=== PATIENT | female | born 2000 | race Caucasian/White ===

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

== ENCOUNTER 2019-01-13 22:29 | Emergency (ER) | payer MEDICAID ==
[2019-01-13 22:46] LABS: MUDS CUTOFF CONCENTRATIONS CUTOFF CONC BELOW:
[2019-01-13 22:48] LABS: BILIRUBIN,URINE NEGATIVE (NEGATIVE); GLUCOSE, URINE (UA) NEGATIVE (NEGATIVE); KETONES,URINE (UA) NEGATIVE (NEGATIVE); LEUKOCYTE ESTERASE, URINE NEGATIVE (NEGATIVE); NITRITE,URINE NEGATIVE (NEGATIVE); OCCULT BLOOD,URINE NEGATIVE (NEGATIVE); PH,URINE 6.5 PH (5.0-7.5); PROTEIN,URINE NEGATIVE (NEGATIVE); UROBILINOGEN,URINE 0.2 (NORMAL) E.U./dL (NORMAL)
[2019-01-13 22:50] LABS: CLARITY,URINE CLEAR (CLEAR); HCG UR QUAL NEGATIVE
[2019-01-13] MEDS ORDERED: LORazepam 0.5 MG TABLET PO STA (23:02)
[2019-01-13 23:04] LABS: AMPHETAMINE SCREEN,URINE NEGATIVE (NEGATIVE); BENZODIAZEPINES SCREEN, URINE NEGATIVE (NEGATIVE); COCAINE SCREEN URINE NEGATIVE (NEGATIVE); METHADONE SCREEN, URINE NEGATIVE (NEGATIVE); METHAMPHETAMINES SCREEN, URINE NEGATIVE (NEGATIVE); OPIATE SCREEN, URINE NEGATIVE (NEGATIVE); OXYCODONE SCREEN, URINE NEGATIVE (NEGATIVE); PROPOXYPHENE SCREEN, URINE NEGATIVE (NEGATIVE); TRICYCLIC ANTIDEPRESSANT,URINE NEGATIVE (NEGATIVE)
--- NOTE | 2019-01-13 23:05 | ED Physician Documentation ---
PD HPI MHE - Stated complaint Stated Complaint: MHE/SI - Chief complaint Chief Complaint: MHE - History obtained from History obtained from: Patient, Family - History of Present Illness Primary symptom: Suicidal ideation, Depression Timing - onset: How many weeks ago (chronic, worse for the past 2 days.) Pain level max: 0 Pain level now: 0 Contributing factors: Family, Work, Other (friends) Similar symptoms before: Diagnosis (depression, SI) Recently seen: Not recently seen (stopped seeing her counselor 4 months ago and stopped meds a few weeks ago.) - Additional information Additional information: states she would crash her car to kill herself. Review of Systems Ten Systems: 10 systems reviewed and negative Constitutional: denies: Fever, Chills Ears: denies: Ear pain Nose: denies: Rhinorrhea / runny nose, Congestion GI: denies: Vomiting : denies: Now EGA Skin: denies: Rash Musculoskeletal: denies: Neck pain, Back pain Neurologic: denies: Headache Psychiatric: reports: Depressed, Suicidal, Insomnia PD PAST MEDICAL HISTORY - Past Medical History Cardiovascular: None Respiratory: None Endocrine/Autoimmune: None Psych: Depression, Obsessive compulsive disorder Musculoskeletal: None - Past Surgical History Past Surgical History: Yes HEENT: Myringotomy (tubes), Tonsil/Adenoidectomy - Present Medications Home Medications: Ambulatory Orders Medication Instructions Recorded Confirmed No Known Home Medications 01/13/19 01/13/19 - Allergies Allergies/Adverse Reactions: Allergies Allergy/AdvReac Type Severity Reaction Status Date / Time morphine Allergy Rash Verified 01/13/19 22:36 - Social History Does the pt smoke?: No Smoking Status: Never smoker Does the pt drink ETOH?: No Does the pt have substance abuse?: No - Immunizations Immunizations are current?: Yes - POLST Patient has POLST: No PD ED PE NORMAL - Vitals Vital signs reviewed: Yes - General General: Alert and oriented X 3, Well developed/nourished, Other (tearful and crying) - HEENT HEENT: PERRL, Moist mucous membranes - Neck Neck: Supple, no meningeal sign - Cardiac Cardiac: RRR, Strong equal pulses - Respiratory Respiratory: No respiratory distress, Clear bilaterally - Abdomen Abdomen: Soft, Non tender, Non distended - Back Back: No CVA TTP - Derm Derm: Warm and dry, No rash - Extremities Extremities: No edema - Neuro Neuro: Alert and oriented X 3 - Psych Psych: Other (crying, but cooperative) Results - Vitals Vitals: Vital Signs - 24 hr 01/13/19 01/13/19 22:31 22:36 Temperature 37.2 C 37.2 C Heart Rate 71 71 Respiratory 26 H 26 H Rate Blood Pressure 143/96 H 143/96 H O2 Saturation 100 100 Oxygen O2 Source Room air - Labs Labs: Laboratory Tests 01/13/19 01/13/19 01/13/19 22:41 22:41 23:55 WBC 6.8 RBC 4.35 Hgb 12.5 Hct 36.4 L MCV 83.6 MCH 28.6 MCHC 34.2 RDW 13.8 Plt Count 270 MPV 7.8 L Neut # (Auto) 3.4 Lymph # (Auto) 2.7 [place] # (Auto) 0.5 Eos # (Auto) 0.1 Baso # (Auto) 0.1 Absolute Nucleated RBC 0.00 Nucleated RBC % 0.0 Sodium Potassium Chloride Carbon Dioxide Anion Gap BUN Creatinine Estimated GFR (MDRD) Glucose Calcium Total Bilirubin AST ALT Alkaline Phosphatase Total Protein Albumin Globulin Albumin/Globulin Ratio Lipase TSH Urine Color YELLOW Urine Clarity CLEAR Urine pH 6.5 Ur Specific [place] 1.015 Urine Protein NEGATIVE Urine Glucose (UA) NEGATIVE Urine Ketones NEGATIVE Urine Occult Blood NEGATIVE Urine Nitrite NEGATIVE Urine Bilirubin NEGATIVE Urine Urobilinogen 0.2 (NORMAL) Ur Leukocyte Esterase NEGATIVE Ur Microscopic Review NOT INDICATED Urine Culture Comments NOT INDICATED Urine HCG, Qual NEGATIVE Salicylates Urine Opiates Screen NEGATIVE Ur Oxycodone Screen NEGATIVE Urine Methadone Screen NEGATIVE Ur Propoxyphene Screen NEGATIVE Acetaminophen Ur Barbiturates Screen NEGATIVE Ur Tricyclics Screen NEGATIVE Ur Phencyclidine Scrn NEGATIVE Ur Amphetamine Screen NEGATIVE U Methamphetamines Scrn NEGATIVE U Benzodiazepines Scrn NEGATIVE Urine Cocaine Screen NEGATIVE U Cannabinoids Screen POSITIVE H Ethyl Alcohol 01/13/19 01/13/19 23:55 23:55 WBC RBC Hgb Hct MCV MCH MCHC RDW Plt Count MPV Neut # (Auto) Lymph # (Auto) [place] # (Auto) Eos # (Auto) Baso # (Auto) Absolute Nucleated RBC Nucleated RBC % Sodium 142 Potassium 3.7 Chloride 108 Carbon Dioxide 26 Anion Gap 8.0 BUN 12 Creatinine 0.6 Estimated GFR (MDRD) 129 Glucose 96 Calcium 9.2 Total Bilirubin 0.5 AST 17 ALT 11 Alkaline Phosphatase 33 L Total Protein 7.5 Albumin 4.8 Globulin 2.7 Albumin/Globulin Ratio 1.8 Lipase 34 TSH 1.56 Urine Color Urine Clarity Urine pH Ur Specific [place] Urine Protein Urine Glucose (UA) Urine Ketones Urine Occult Blood Urine Nitrite Urine Bilirubin Urine Urobilinogen Ur Leukocyte Esterase Ur Microscopic Review Urine Culture Comments Urine HCG, Qual Salicylates < 6.0 Urine Opiates Screen Ur Oxycodone Screen Urine Methadone Screen Ur Propoxyphene Screen Acetaminophen < 10 L Ur Barbiturates Screen Ur Tricyclics Screen Ur Phencyclidine Scrn Ur Amphetamine Screen U Methamphetamines Scrn U Benzodiazepines Scrn Urine Cocaine Screen U Cannabinoids Screen Ethyl Alcohol < 5.0 PD MEDICAL DECISION MAKING - ED course Complexity details: reviewed results, re-evaluated patient, considered differential, d/w patient, d/w family ED course: Patient is medically clear for psychiatric care. Tele-psychiatry was consulted and awaiting consult at change of shift. Social work will be consulted for placement. Patient is voluntary at this point. Patient signed out to [facility] emergency department physician This document was made in part using voice recognition software. While efforts are made to proofread this document, sound alike and grammatical errors may occur. Departure - Departure Clinical Impression: Suicidal ideation Depression Qualifiers: Depression Type: unspecified Qualified Code(s): F32.9 - Major depressive disorder, single episode, unspecified Condition: Good
[2019-01-14 00:04] LABS: BASOPHILS # (AUTO) 0.1 10^3/uL (0.0-0.1); BASOPHILS % (AUTO) 1.1 %; EOSINOPHILS # (AUTO) 0.1 10^3/uL (0.0-0.7); EOSINOPHILS % (AUTO) 1.3 %; HGB - HEMOGLOBIN 12.5 g/dL (12.0-16.0); LYMPHOCYTES # (AUTO) 2.7 10^3/uL (1.5-3.5); LYMPHOCYTES % (AUTO) 40.1 %; MEAN CORPUSCULAR HEMOGLOBIN 28.6 pg (27.0-31.0); MEAN CORPUSCULAR HGB CONC 34.2 g/dL (32.0-36.0); MEAN CORPUSCULAR VOLUME 83.6 fL (81.0-99.0); MEAN PLATELET VOLUME 7.8 fL (7.9-10.8); MONOCYTES # (AUTO) 0.5 10^3/uL (0.0-1.0); NEUTROPHILS # (AUTO) 3.4 10^3/uL (1.5-6.6); NEUTROPHILS % (AUTO) 49.5 %; PLT - PLATELET COUNT 270 10^3/uL (130-450); RED BLOOD COUNT 4.35 10^6/uL (4.20-5.40); RED CELL DISTRIBUTION WIDTH 13.8 % (12.0-15.0); WHITE BLOOD COUNT 6.8 x10^3/uL (4.8-10.8)
[2019-01-14 00:17] LABS: ACETAMINOPHEN < 10 ug/mL (10-30); ALBUMIN 4.8 g/dL (3.2-5.5); ALBUMIN/GLOBULIN RATIO 1.8 (1.0-2.2); ALKALINE PHOSPHATASE 33 IU/L (42-121); ALT ALANINE AMINOTRANSFERASE 11 IU/L (10-60); AST ASPARTATE AMINOTRANSFERASE 17 IU/L (10-42); BILIRUBIN,TOTAL 0.5 mg/dL (0.2-1.0); BUN - BLOOD UREA NITROGEN 12 mg/dL (6-20); CALCIUM 9.2 mg/dL (8.5-10.3); CARBON DIOXIDE - CO2 26 mmol/L (21-32); CHLORIDE 108 mmol/L (101-111); CREATININE 0.6 mg/dL (0.4-1.0); GFR - MDRD 129 (>89); GLUCOSE 96 mg/dL (70-100); LIPASE 34 U/L (22-51); SALICYLATE < 6.0 mg/dL; SODIUM 142 mmol/L (135-145); TOTAL PROTEIN 7.5 g/dL (6.7-8.2)
[2019-01-14] MEDS ORDERED: ACETAMINOPHEN 325 MG TABLET PO STA (01:17)
[2019-01-14] MEDS ORDERED: LORazepam 0.5 MG TABLET PO STA (06:54)
--- NOTE | 2019-01-14 06:59 | TELEPSYCH PHYS NOTE ---
Telepsych Note - CHIEF COMPLAINT/HX OF PRESENT ILLNESS Cheif Complaint and History of Present Illness: Name: Svetlana Ceron : 89. 18F Date: 01/14/19 Time: 9:35am Location of patient: [facility] ED Location of doctor: [place] This evaluation was conducted via telepsychiatry with the assistance of onsite staff Chief Complaint: Depression / SI History of Present Illness: Pt seen via televideo with the help of onsite staff. Pt is a 18 yo female with a hx of depression. Pt presented to the ED due to a several week period of worsening depressive sxs. Cites sxs inclusive of pervasive depressed mood, poor sleep, decreased appetite, isolation, tearfulness, negative self-talk, feeling helpless, hopeless and over the past 2 week notes increasing thoughts of suicide. Reports she does not want to be here any longer. Reports a potential plan to kill herself; via crashing her car or overdosing on pills. States while driving she states she comes close a lot. However she stops herself because she is worried that she will not be successful and end up injured and in a worse situation. PT has no prior hx of attempts, however prior hx of ideation and self injury. She stopped therapy approximately 4 months ago and her medications 8 months ago. States on 3 year long trials of Zoloft, Prozac and Effexor were all unsuccessful. States therapy was unhelpful. On ROS, pt denies AVHs, delusions nor HI. Reports SI, noted a potential plan to crash her car. Pt presents with si/sxs of worsening depression in the context of multiple stressors and poor coping. Pt presents as a danger to herself requiring acute inpt psychiatric admission for safety, stabilization and treatment. Pt is voluntary for inpt treatment. Collateral: Spoke to the pts mother, who was present during the evaluation. [phone]. She expressed safety concerns. She notes pt has been worsening over the past few weeks. States she has been lashing out to push her family away. Has been isolating which is not her. States she expressed a desire to last night which is why she brought her to the hospital. SI/ Self harm: reports prior ideation and plan. Prior hx of self injurious behaivors. No reported attempts. HI/Violence: none reported Trauma history: unknown Access to weapons: none reported Legal: none reported Psychiatric History/Treatment History: prior outpt. No previous inpt admissions. Drug/Alcohol History: none reported Medical History: none reported Medications & Freq: none currently. Previously on Zoloft, Prozac and Effexor all she reports for a year trial and all ineffective. Allergies: morphine Sleep: decreased. Family Psych History/History of suicide: mother and father with depression and anxiety. Both treated with Venlafaxine with good effect. 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 Denies HI. + SI with plan (s) crash her car or take pills. Perception: Denies AVHs Sensorium, memory, and orientation: AxOx3. Intellectual functioning: average Insight and judgment: fair . - SI/HI/SELF HARM SI/HI/SELF HARM (CURRENT OR HISTORY OF):: SI - VIOLENCE/LEGAL/COLLATERAL Violence - Legal - Collateral: none reported - PSYCHIATRIC HX/TREATMENT HX Psychiatric: Depression, Obsessive compulsive disorder Psychiatric/Treatment Hx Other: Hx of outpt treatment. Non compliant for the past several months. - MEDICAL HX Does the pt have a hx of MRSA?: No Cardiovascular: None Respiratory: None Endocrine/Autoimmune: None Musculoskeletal: None Blood Disorders: None - HOME MEDICATIONS Home Meds (as last confirmed): Patient History Medication Instructions Recorded Confirmed No Known Home Medications 01/13/19 01/13/19 - ALLERGIES Allergies (as last confirmed): Allergies Allergy/AdvReac Type Severity Reaction Status Date / Time morphine Allergy Rash Verified 01/13/19 22:36 - FAMILY PSYCH/SUICIDE/SOCIAL HX-MENTAL Family - Suicide - Social Hx and Mental Status Exam: Mother and Father with depression and anxiety. No family hx of suicidality. - TREATMENT/PHARMACOLOGICAL RECOMMENDATION Treatment - Pharmacological - Therapy Recommendations: Diagnosis: MDD, severe, recurrent without psychotic features. Impression/Risk Assessment: Pt is a 18 yo female with hx of depression presenting with a several week period of worsening depressive sxs inclusive of suicidal ideation and a noted potential plan. Pt stopped her outpt therapy and medications months previously. Pts mother expressed safety concerns. She pres ents as a danger to herself requiring acute inpt psychiatric admission for safety, stabilization and treatment. Treatment Recommendations: Pt requires acute inpt psychiatric admission For safety, stabilization and treatment. Pt is voluntary for inpt treatment. Should the pt no longer agree to voluntary placement, she cannot leave and will require involuntary placement - TIME SPENT & PROVIDER LOCATION Telepsych consultation conducted via videoconferencing: Yes List names and roles of persons who participated in consult: melissa urena (mother)stella Telepsych Provider Location: [place] Time Telepsych consult began: 09:35 Time Telepsych consult completed: 09:50
--- NOTE | 2019-01-14 09:17 | ED Physician Documentation ---
PD HPI MHE - Stated complaint Stated Complaint: MHE/SI - Chief complaint Chief Complaint: MHE - History obtained from History obtained from: Patient, Family - History of Present Illness Primary symptom: Suicidal ideation, Depression PD PAST MEDICAL HISTORY - Past Medical History Cardiovascular: None Respiratory: None Endocrine/Autoimmune: None Psych: Depression, Obsessive compulsive disorder Musculoskeletal: None - Past Surgical History Past Surgical History: Yes HEENT: Myringotomy (tubes), Tonsil/Adenoidectomy - Present Medications Home Medications: Ambulatory Orders Medication Instructions Recorded Confirmed No Known Home Medications 01/13/19 01/13/19 - Allergies Allergies/Adverse Reactions: Allergies Allergy/AdvReac Type Severity Reaction Status Date / Time morphine Allergy Rash Verified 01/13/19 22:36 - Social History Does the pt smoke?: No Smoking Status: Never smoker Does the pt drink ETOH?: No Does the pt have substance abuse?: No - Immunizations Immunizations are current?: Yes - POLST Patient has POLST: No Results - Vitals Vitals: Vital Signs - 24 hr 01/13/19 01/13/19 01/14/19 22:31 22:36 07:07 Temperature 37.2 C 37.2 C Heart Rate 71 71 85 Respiratory 26 H 26 H 16 Rate Blood Pressure 143/96 H 143/96 H 97/59 L O2 Saturation 100 100 99 Oxygen O2 Source Room air - Labs Labs: Laboratory Tests 01/13/19 01/13/19 01/13/19 22:41 22:41 23:55 WBC 6.8 RBC 4.35 Hgb 12.5 Hct 36.4 L MCV 83.6 MCH 28.6 MCHC 34.2 RDW 13.8 Plt Count 270 MPV 7.8 L Neut # (Auto) 3.4 Lymph # (Auto) 2.7 [place] # (Auto) 0.5 Eos # (Auto) 0.1 Baso # (Auto) 0.1 Absolute Nucleated RBC 0.00 Nucleated RBC % 0.0 Sodium Potassium Chloride Carbon Dioxide Anion Gap BUN Creatinine Estimated GFR (MDRD) Glucose Calcium Total Bilirubin AST ALT Alkaline Phosphatase Total Protein Albumin Globulin Albumin/Globulin Ratio Lipase TSH Urine Color YELLOW Urine Clarity CLEAR Urine pH 6.5 Ur Specific [place] 1.015 Urine Protein NEGATIVE Urine Glucose (UA) NEGATIVE Urine Ketones NEGATIVE Urine Occult Blood NEGATIVE Urine Nitrite NEGATIVE Urine Bilirubin NEGATIVE Urine Urobilinogen 0.2 (NORMAL) Ur Leukocyte Esterase NEGATIVE Ur Microscopic Review NOT INDICATED Urine Culture Comments NOT INDICATED Urine HCG, Qual NEGATIVE Salicylates Urine Opiates Screen NEGATIVE Ur Oxycodone Screen NEGATIVE Urine Methadone Screen NEGATIVE Ur Propoxyphene Screen NEGATIVE Acetaminophen Ur Barbiturates Screen NEGATIVE Ur Tricyclics Screen NEGATIVE Ur Phencyclidine Scrn NEGATIVE Ur Amphetamine Screen NEGATIVE U Methamphetamines Scrn NEGATIVE U Benzodiazepines Scrn NEGATIVE Urine Cocaine Screen NEGATIVE U Cannabinoids Screen POSITIVE H Ethyl Alcohol 01/13/19 01/13/19 23:55 23:55 WBC RBC Hgb Hct MCV MCH MCHC RDW Plt Count MPV Neut # (Auto) Lymph # (Auto) [place] # (Auto) Eos # (Auto) Baso # (Auto) Absolute Nucleated RBC Nucleated RBC % Sodium 142 Potassium 3.7 Chloride 108 Carbon Dioxide 26 Anion Gap 8.0 BUN 12 Creatinine 0.6 Estimated GFR (MDRD) 129 Glucose 96 Calcium 9.2 Total Bilirubin 0.5 AST 17 ALT 11 Alkaline Phosphatase 33 L Total Protein 7.5 Albumin 4.8 Globulin 2.7 Albumin/Globulin Ratio 1.8 Lipase 34 TSH 1.56 Urine Color Urine Clarity Urine pH Ur Specific [place] Urine Protein Urine Glucose (UA) Urine Ketones Urine Occult Blood Urine Nitrite Urine Bilirubin Urine Urobilinogen Ur Leukocyte Esterase Ur Microscopic Review Urine Culture Comments Urine HCG, Qual Salicylates < 6.0 Urine Opiates Screen Ur Oxycodone Screen Urine Methadone Screen Ur Propoxyphene Screen Acetaminophen < 10 L Ur Barbiturates Screen Ur Tricyclics Screen Ur Phencyclidine Scrn Ur Amphetamine Screen U Methamphetamines Scrn U Benzodiazepines Scrn Urine Cocaine Screen U Cannabinoids Screen Ethyl Alcohol < 5.0 PD MEDICAL DECISION MAKING - ED course Complexity details: reviewed old records, reviewed results, considered differential, d/w patient, d/w family ED course: 18-year-old female with a history of depression has been off of her medications is depressed and has suicidal. ~Psych is recommended inpatient psychiatric treatment and the medical psychotherapist has been able to secure a bed at [facility]. Departure - Departure Disposition: 65 Psych Hosp/Unit DC/Xfer Clinical Impression: Suicidal ideation Depression Qualifiers: Depression Type: unspecified Qualified Code(s): F32.9 - Major depressive disorder, single episode, unspecified Condition: Good
[2019-01-14 11:15] VITALS: BP 110/65
== END 2019-01-14 11:33 ==
LOC: ED 22:29
DX: R45.851 Suicidal ideations (principal); F32.9 Major depressive disorder, single episode, unspecified; Z91.128 Patient's intentional underdosing of medication regimen for other reason; Z75.1 Person awaiting admission to adequate facility elsewhere
CPT/HCPCS: 36415; 80053; 80306; 80307; 80320; 80329; 81003; 81025; 83690; 84443; 85025; 99284; 99285; A9270; Q3014; 81001; 87086; 99283

== ENCOUNTER 2019-02-04 08:00 | Outpatient (CLI) | payer MEDICAID ==
[2019-02-04 14:08] LABS: BASOPHILS # (AUTO) 0.1 10^3/uL (0.0-0.1); EOSINOPHILS # (AUTO) 0.1 10^3/uL (0.0-0.7); EOSINOPHILS % (AUTO) 1.3 %; HGB - HEMOGLOBIN 12.2 g/dL (12.0-16.0); LYMPHOCYTES # (AUTO) 1.7 10^3/uL (1.5-3.5); LYMPHOCYTES % (AUTO) 32.2 %; MEAN CORPUSCULAR HGB CONC 34.2 g/dL (32.0-36.0); MEAN CORPUSCULAR VOLUME 84.7 fL (81.0-99.0); MEAN PLATELET VOLUME 8.8 fL (7.9-10.8); MONOCYTES # (AUTO) 0.4 10^3/uL (0.0-1.0); MONOCYTES % (AUTO) 6.6 %; NEUTROPHILS # (AUTO) 3.2 10^3/uL (1.5-6.6); NEUTROPHILS % (AUTO) 58.9 %; PLT - PLATELET COUNT 203 10^3/uL (130-450); RED BLOOD COUNT 4.19 10^6/uL (4.20-5.40); WHITE BLOOD COUNT 5.4 x10^3/uL (4.8-10.8)
[2019-02-04 14:27] LABS: HCG,QUALITATIVE BLOOD NEGATIVE
[2019-02-04 14:41] LABS: ALBUMIN 4.4 g/dL (3.2-5.5); ALBUMIN/GLOBULIN RATIO 1.8 (1.0-2.2); ALKALINE PHOSPHATASE 24 IU/L (42-121); ALT ALANINE AMINOTRANSFERASE 10 IU/L (10-60); AST ASPARTATE AMINOTRANSFERASE 14 IU/L (10-42); BILIRUBIN,TOTAL 0.9 mg/dL (0.2-1.0); BUN - BLOOD UREA NITROGEN 10 mg/dL (6-20); CARBON DIOXIDE - CO2 23 mmol/L (21-32); CHLORIDE 109 mmol/L (101-111); CHOL/HDL RATIO 2.2 (<4.4); CHOLESTEROL 108 mg/dL; CREATININE 0.6 mg/dL (0.4-1.0); GFR - MDRD 129 (>89); GLUCOSE 93 mg/dL (70-100); HDL CHOLESTEROL 49 mg/dL; SODIUM 138 mmol/L (135-145); TOTAL PROTEIN 6.9 g/dL (6.7-8.2)
== END 2019-02-04 23:59 | disposition home or self-care (01) ==
LOC: LAB.N 08:00
PROVIDERS: ATTEND Registered Nurse
DX: F31.9 Bipolar disorder, unspecified (principal); Z79.899 Other long term (current) drug therapy; Z30.011 Encounter for initial prescription of contraceptive pills
CPT/HCPCS: 36415; 80053; 80061; 80178; 83721; 84443; 84703; 85025

== ENCOUNTER 2019-03-01 06:49 | Emergency (ER) | payer MEDICAID ==
[2019-03-01 06:55] VITALS: BP 113/63
--- NOTE | 2019-03-01 07:10 | ED Physician Documentation ---
PD HPI OPHTHO - Stated complaint Stated Complaint: EYE REDNESS - Chief complaint Chief Complaint: Heent - History obtained from History obtained from: Patient - History of Present Illness Timing - onset: Today Timing - duration: Hours Timing - details: Abrupt onset, Still present in ED Severity Comments: mild Location: Right Quality / character: Itching, Other (redness, discharge) Associated symptoms: Redness, Discharge Contributing factors: Exposed to conjunctivitis (a week or 2 ago) Similar symptoms before: Has not had sx before Recently seen: Not recently seen - Treatment prior to arrival Treatment prior to arrival: visine. - Additional information Additional information: Pt does not wear contacts or glasses Review of Systems Ten Systems: 10 systems reviewed and negative Constitutional: denies: Fever, Chills Eyes: reports: Discharge, Irritation. denies: Loss of vision, Decreased vision, Photophobia Nose: denies: Rhinorrhea / runny nose, Congestion, Sinus pressure / pain Throat: denies: Sore throat Respiratory: denies: Cough GI: denies: Nausea, Vomiting Skin: reports: Reviewed and negative Neurologic: denies: Headache PD PAST MEDICAL HISTORY - Past Medical History Cardiovascular: None Respiratory: None Endocrine/Autoimmune: None Psych: Depression, Obsessive compulsive disorder Musculoskeletal: None - Past Surgical History Past Surgical History: Yes HEENT: Myringotomy (tubes), Tonsil/Adenoidectomy - Present Medications Home Medications: Ambulatory Orders Medication Instructions Recorded Confirmed Erythromycin Base [Erythromycin 1 applic OP Q4HR #1 oint...g. 03/01/19 Ophthalmic Ointment] Lurasidone HCl [Latuda] 20 mg PO DAILY 03/01/19 03/01/19 - Allergies Allergies/Adverse Reactions: Allergies Allergy/AdvReac Type Severity Reaction Status Date / Time morphine Allergy Rash Verified 03/01/19 06:55 - Social History Does the pt smoke?: No Smoking Status: Never smoker Does the pt drink ETOH?: No Does the pt have substance abuse?: No - Immunizations Immunizations are current?: Yes - POLST Patient has POLST: No PD ED PE NORMAL - Vitals Vital signs reviewed: Yes - General General: Alert and oriented X 3 - HEENT HEENT: Atraumatic, PERRL, EOMI, Moist mucous membranes, Pharynx benign - Neck Neck: Supple, no meningeal sign - Cardiac Cardiac: RRR - Respiratory Respiratory: No respiratory distress - Abdomen Abdomen: Non distended - Female Female : Deferred - Rectal Rectal: Deferred - Derm Derm: Normal color, Warm and dry - Neuro Neuro: Alert and oriented X 3 Eye Opening: Spontaneous Motor: Obeys Commands Verbal: Oriented GCS Score: 15 - Psych Psych: Normal mood, Normal affect PD ED PE EXPANDED - Eyes Eyes: Visual acuity - see nn, Right eye, Injected conj/sclera. No: Eyelid swelling, Eyelid erythema, No eyelid FB (everted), Exudate, Scleral icterus Results - Vitals Vitals: Vital Signs - 24 hr 03/01/19 06:52 Temperature 36.8 C Heart Rate 57 L Respiratory 16 Rate Blood Pressure 113/63 O2 Saturation 100 Oxygen O2 Source Room air PD MEDICAL DECISION MAKING - ED course Complexity details: considered differential, d/w patient ED course: ddx - episcleritis, bacterial conjunctivitis, allergic conjunctivitis, viral conjunctivitis, corneal abrasion. 18 y/o F with no hx of eye trauma with mild R eye redness and discharge this morning. Does not wear contacts or glasses. 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 Denies hx of trauma. No allergic symptoms except for eye itching. Exam and hx Clinically c/w conjunctivitis. Will treat empirically with antibiotics. Departure - Departure Disposition: 01 Home, Self Care Clinical Impression: Conjunctivitis Qualifiers: Conjunctivitis type: acute Acute conjunctivitis type: unspecified Laterality: right Qualified Code(s): H10.31 - Unspecified acute conjunctivitis, right eye Condition: Stable Record reviewed to determine appropriate education?: Yes Instructions: Conjunctivitis Follow-Up: Araceli Swan ARNP [Primary Care Provider] - As Needed Prescriptions: Erythromycin Base [Erythromycin Ophthalmic Ointment] 1 applic OP Q4HR #1 oint...g. Comments: Use the antibiotic ointment for 7 days. Follow up with your doctor if symptoms persist. The antibiotic ointment can cause your vision to be initially slightly blurred. Wash your hands and avoid contact with the affected eye until symptoms resolve. You may return to work when symptoms resolve. Return to the ED if pain is severe or you develop decreased vision or loss of vision. Forms: Activity restrictions
== END 2019-03-01 07:32 | disposition home or self-care (01) ==
LOC: ED 06:49
DX: H10.31 Unspecified acute conjunctivitis, right eye (principal)
CPT/HCPCS: 99282; 99284

== ENCOUNTER 2019-04-12 08:00 | Outpatient (CLI) | payer MEDICAID ==
[2019-04-12 13:38] LABS: LITHIUM < 0.05 mmol/L
== END 2019-04-12 23:59 | disposition home or self-care (01) ==
LOC: LAB.N 08:00
PROVIDERS: ATTEND Registered Nurse
DX: Z79.899 Other long term (current) drug therapy (principal)
CPT/HCPCS: 36415; 80178

== ENCOUNTER 2019-08-21 17:20 | Emergency (ER) | payer MEDICAID ==
[2019-08-21 17:31] VITALS: BP 120/82
--- NOTE | 2019-08-21 17:34 | ED Physician Documentation ---
PD HPI PED ILLNESS - Stated complaint Stated Complaint: SORE THROAT - Chief complaint Chief Complaint: Heent - History obtained from History obtained from: Patient (3 days of sore throat with nasal drainage and cough. Some subjective fevers, none measured.) Review of Systems Constitutional: reports: Chills, Fatigue. denies: Myalgias Nose: reports: Rhinorrhea / runny nose, Congestion Throat: reports: Sore throat Respiratory: reports: Cough GI: denies: Vomiting, Diarrhea PD PAST MEDICAL HISTORY - Past Medical History Cardiovascular: None Respiratory: None Endocrine/Autoimmune: None Psych: Depression, Obsessive compulsive disorder Musculoskeletal: None - Past Surgical History Past Surgical History: Yes HEENT: Myringotomy (tubes), Tonsil/Adenoidectomy - Present Medications Home Medications: Ambulatory Orders Medication Instructions Recorded Confirmed Erythromycin Base [Erythromycin 1 applic OP Q4HR #1 oint...g. 03/01/19 Ophthalmic Ointment] Lurasidone HCl [Latuda] 20 mg PO DAILY 03/01/19 03/01/19 - Allergies Allergies/Adverse Reactions: Allergies Allergy/AdvReac Type Severity Reaction Status Date / Time morphine Allergy Rash Verified 08/21/19 17:28 - Social History Does the pt smoke?: No Smoking Status: Never smoker Does the pt drink ETOH?: No Does the pt have substance abuse?: No - Immunizations Immunizations are current?: Yes - POLST Patient has POLST: No PD ED PE NORMAL - Vitals Vital signs reviewed: Yes - General General: Alert and oriented X 3, No acute distress - HEENT HEENT: PERRL, Ears normal, Pharynx benign (Visualized portions of the oropharynx are fairly normal, no tonsils) - Neck Neck: Supple, no meningeal sign, No bony TTP, Other (Mild anterior cervical adenopathy, supple neck) - Derm Derm: Normal color, Warm and dry - Neuro Neuro: Alert and oriented X 3, Normal speech Results - Vitals Vitals: Vital Signs - 24 hr 08/21/19 17:28 Temperature 37.1 C Heart Rate 83 Respiratory 15 Rate Blood Pressure 120/82 H O2 Saturation 99 Oxygen O2 Source Room air - Labs Labs: Laboratory Tests 08/21/19 17:31 Group A Strep Rapid Negative Departure - Departure Disposition: 01 Home, Self Care Clinical Impression: Viral pharyngitis Condition: Good Record reviewed to determine appropriate education?: Yes Instructions: ED Pharyngitis Viral Comments: Ibuprofen as needed for pain, you can also try decongestant such as Sudafed. Return for new or worsening symptoms. Follow-up with your doctor in a week if not better.
[2019-08-21 17:47] LABS: RAPID STREP SCREEN Negative (Negative)
== END 2019-08-21 18:11 | disposition home or self-care (01) ==
LOC: ED 17:20
DX: J02.8 Acute pharyngitis due to other specified organisms (principal)
CPT/HCPCS: 87070; 87430; 99282; 99283

== ENCOUNTER 2020-04-28 20:29 | Emergency (ER) | payer MEDICAID ==
[2020-04-28 20:37] VITALS: BP 144/77
--- NOTE | 2020-04-28 20:49 | ED Physician Documentation ---
PD HPI UPPER EXT INJURY - Stated complaint Stated Complaint: FINGER LAC - Chief complaint Chief Complaint: Laceration - History obtained from History obtained from: Patient - History of Present Illness Location: Left, Finger (5th) Where injury occurred: Home Timing - onset: How many minutes ago (20) Timing - duration: Minutes (20) Timing - details: Abrupt onset Pain level max: 3 Pain level now: 2 Improved by: Rest Worsened by: Moving, Palpating Associated symptoms: No: Weakness, Numbness, Tingling, Swelling Recently seen: Not recently seen - Additonal information Additional information: pt is right handed. Td UTD. Review of Systems : denies: Now EGA PD PAST MEDICAL HISTORY - Past Medical History Past Medical History: Yes Cardiovascular: None Respiratory: None Endocrine/Autoimmune: None Psych: Depression, Obsessive compulsive disorder Musculoskeletal: None - Past Surgical History Past Surgical History: Yes HEENT: Myringotomy (tubes), Tonsil/Adenoidectomy - Present Medications Home Medications: Ambulatory Orders Medication Instructions Recorded Confirmed Erythromycin Base [Erythromycin 1 applic OP Q4HR #1 oint...g. 03/01/19 Ophthalmic Ointment] Lurasidone HCl [Latuda] 20 mg PO DAILY 03/01/19 03/01/19 - Allergies Allergies/Adverse Reactions: Allergies Allergy/AdvReac Type Severity Reaction Status Date / Time morphine Allergy Rash Verified 04/28/20 20:37 - Social History Does the pt smoke?: No Smoking Status: Never smoker Does the pt drink ETOH?: No Does the pt have substance abuse?: No - Immunizations Immunizations are current?: Yes - POLST Patient has POLST: No PD ED PE NORMAL - Vitals Vital signs reviewed: Yes - General General: Alert and oriented X 3, No acute distress - Extremities Extremities: Other (1 cm laceration to the distal tip of the left fifth digit. No bleeding. Subcutaneous. Neurovascular intact) - Neuro Neuro: Alert and oriented X 3 - Psych Psych: Normal mood, Normal affect Results - Vitals Vitals: Vital Signs - 24 hr 04/28/20 20:30 Temperature 36.8 C Heart Rate 71 Respiratory 16 Rate Blood Pressure 144/77 H O2 Saturation 100 Oxygen O2 Source Room air Procedures - Laceration (location) L 5th digit Length in cm: 1 Wound type: Into subcut fat, Clean Neurovascular status: Sensory intact, Motor intact, Vascular intact Tendon involvement: Tendon intact Wound Preparation: Irrigated copiously NS Skin layer closure: Dermabond Other: Patient tolerated well, No complications, Neurovascular intact, Dressing applied, Tetanus UTD Complexity: Simple PD MEDICAL DECISION MAKING - ED course Complexity details: considered differential, d/w patient ED course: Laceration to the very distal tip of the left fifth digit. Repaired with Dermabond. Tolerated well. No active bleeding. Tetanus up-to-date. Patient counseled regarding signs and symptoms for which I believe and urgent re- evaluation would be necessary. Patient with good understanding of and agreement to plan and is comfortable going home at this time This document was made in part using voice recognition software. While efforts are made to proofread this document, sound alike and grammatical errors may occur. Departure - Departure Disposition: 01 Home, Self Care Clinical Impression: Finger laceration Qualifiers: Encounter type: initial encounter Finger: little finger Damage to nail status: without damage Foreign body presence: without foreign body Laterality: left Qualified Code(s): S61.217A - Laceration without foreign body of left little finger without damage to nail, initial encounter Condition: Good Instructions: ED Laceration Ext Skin Glue Follow-Up: Araceli Swan ARNP [Primary Care Provider] - As Needed Comments: Keep the wound clean. Return if you worsen. Do not apply any ointment as this may dissolve the glue. The glue will fall off on its own in a few days. Discharge Date/Time: 04/28/20 21:06
== END 2020-04-28 21:06 | disposition home or self-care (01) ==
LOC: ED 20:29
DX: S61.217A Laceration without foreign body of left little finger without damage to nail, initial encounter (principal); W26.0XXA Contact with knife, initial encounter; Y93.G1 Activity, food preparation and clean up; Y92.009 Unspecified place in unspecified non-institutional (private) residence as the place of occurrence of the external cause
CPT/HCPCS: 12001; 99281; 99282

== ENCOUNTER 2020-06-22 14:34 | Emergency (ER) | payer MEDICAID ==
[2020-06-22 14:42] VITALS: BP 130/77
[2020-06-22] MEDS ORDERED: predniSONE 20 MG TABLET PO STA (14:59)
[2020-06-22] MEDS ORDERED: IBUPROFEN 800 MG TABLET PO STA (14:59)
[2020-06-22] MEDS ORDERED: SULFAMETH/TRIMETH DS 800/160 MG TABLET PO STA (15:00)
[2020-06-22] MEDS ORDERED: cephALEXin 250 MG CAPSULE PO STA (15:00)
--- NOTE | 2020-06-22 15:03 | ED Physician Documentation ---
History of Present Illness - Stated complaint Stated Complaint: BUG BITE ON LEG - Chief complaint Chief Complaint: General - History obtained from History obtained from: Patient - History of Present Illness Timing: Today Pain level max: 6 Pain level now: 5 - Additonal information Additional information: 20-year-old female presents to the emergency department complaining of redness to the right thigh, noted today. She thinks something may have bit her. She has also noticed a lump in the right groin. This started today as well. Worse with palpation, nothing makes it better. No fever. No chills. Review of Systems Constitutional: denies: Fever, Chills GI: denies: Vomiting : denies: Dysuria, Frequency, Hesitancy, Now EGA Skin: denies: Rash Musculoskeletal: denies: Neck pain, Back pain Neurologic: denies: Headache PD PAST MEDICAL HISTORY - Past Medical History Cardiovascular: None Respiratory: None Endocrine/Autoimmune: None Psych: Depression, Obsessive compulsive disorder Musculoskeletal: None - Past Surgical History Past Surgical History: Yes HEENT: Myringotomy (tubes), Tonsil/Adenoidectomy - Present Medications Home Medications: Ambulatory Orders Medication Instructions Recorded Confirmed Erythromycin Base [Erythromycin 1 applic OP Q4HR #1 oint...g. 03/01/19 Ophthalmic Ointment] Lurasidone HCl [Latuda] 20 mg PO DAILY 03/01/19 03/01/19 Cephalexin [Keflex] 500 mg PO Q6H #28 capsule 06/22/20 Ibuprofen [Motrin] 800 mg PO Q8H PRN #30 tablet 06/22/20 Sulfamethox/Trimeth 800/160 1 each PO BID #14 tablet 06/22/20 [Bactrim Ds 800/160] - Allergies Allergies/Adverse Reactions: Allergies Allergy/AdvReac Type Severity Reaction Status Date / Time morphine Allergy Rash Verified 06/22/20 14:39 - Social History Does the pt smoke?: No Smoking Status: Never smoker Does the pt drink ETOH?: No Does the pt have substance abuse?: No - Immunizations Immunizations are current?: Yes - POLST Patient has POLST: No PD ED PE NORMAL - Vitals Vital signs reviewed: Yes - General General: Alert and oriented X 3, No acute distress - HEENT HEENT: Moist mucous membranes - Neck Neck: Supple, no meningeal sign - Derm Derm: Warm and dry - Extremities Extremities: Other (distal right lateral thigh with a 3 cm erythematous area with a darker center. No fluctuance or drainage. Her right inguinal area has a firm swollen lymph node, approximately 0.3 cm in size. Bedside ultrasound does not reveal an abscess.) - Neuro Neuro: Alert and oriented X 3 Results - Vitals Vitals: Vital Signs - 24 hr 06/22/20 14:39 Temperature 36.5 C Heart Rate 68 Respiratory 14 Rate Blood Pressure 130/77 O2 Saturation 100 Oxygen O2 Source Room air PD MEDICAL DECISION MAKING - ED course Complexity details: considered differential, d/w patient ED course: Patient with what appears to be cellulitis of the right lower extremity, possible allergic reaction, given the inflamed lymph node, will start on antibiotics. Also given a dose of steroids here. Will place on anti- inflammatories as well. No evidence of deep space infection. No drainable abscess. No necrotizing fasciitis. Patient counseled regarding signs and symptoms for which I believe and urgent re-evaluation would be necessary. Patient with good understanding of and agreement to plan and is comfortable going home at this time This document was made in part using voice recognition software. While efforts are made to proofread this document, sound alike and grammatical errors may occur. Departure - Departure Disposition: 01 Home, Self Care Clinical Impression: Lymphadenitis Cellulitis Qualifiers: Site of cellulitis: extremity Site of cellulitis of extremity: lower extremity Laterality: right Qualified Code(s): L03.115 - Cellulitis of right lower limb Condition: Good Instructions: ED Infec Skin Cellulitis Follow-Up: Araceli Swan ARNP [Primary Care Provider] - Within 1 week Prescriptions: Sulfamethox/Trimeth 800/160 [Bactrim Ds 800/160] 1 each PO BID #14 tablet Cephalexin [Keflex] 500 mg PO Q6H #28 capsule Ibuprofen [Motrin] 800 mg PO Q8H PRN #30 tablet PRN Reason: PAIN &/OR FEVER Comments: Take all antibiotics until gone. Return if you worsen. This should improve with the antibiotics over the next 24 hours. Return for fever, worsening redness or swelling. Discharge Date/Time: 06/22/20 15:22
== END 2020-06-22 15:22 | disposition home or self-care (01) ==
LOC: ED 14:34
DX: L03.115 Cellulitis of right lower limb (principal); I88.9 Nonspecific lymphadenitis, unspecified
CPT/HCPCS: 99283; 99284; A9270; J7512

== ENCOUNTER 2020-08-20 15:18 | Emergency (ER) | payer MEDICAID ==
[2020-08-20] MEDS ORDERED: BUTALB/ACETAM/CAFF 50/325/40MG TABLET PO STA (16:04)
[2020-08-20 16:12] LABS: BASOPHILS % (AUTO) 0.7 %; EOSINOPHILS % (AUTO) 0.7 %; HGB - HEMOGLOBIN 13.7 g/dL (12.0-16.0); LYMPHOCYTES # (AUTO) 1.5 10^3/uL (1.5-3.5); LYMPHOCYTES % (AUTO) 23.9 %; MEAN CORPUSCULAR HEMOGLOBIN 28.4 pg (27.0-31.0); MEAN CORPUSCULAR HGB CONC 32.9 g/dL (32.0-36.0); MEAN CORPUSCULAR VOLUME 86.1 fL (81.0-99.0); MEAN PLATELET VOLUME 10.2 fL (7.9-10.8); MONOCYTES # (AUTO) 0.3 10^3/uL (0.0-1.0); MONOCYTES % (AUTO) 5.5 %; NEUTROPHILS # (AUTO) 4.2 10^3/uL (1.5-6.6); NEUTROPHILS % (AUTO) 68.9 %; PLT - PLATELET COUNT 255 10^3/uL (130-450); RED BLOOD COUNT 4.83 10^6/uL (4.20-5.40); RED CELL DISTRIBUTION WIDTH 13.2 % (12.0-15.0); WHITE BLOOD COUNT 6.2 x10^3/uL (4.8-10.8)
[2020-08-20 16:18] LABS: BILIRUBIN,URINE NEGATIVE (NEGATIVE); GLUCOSE, URINE (UA) NEGATIVE (NEGATIVE); KETONES,URINE (UA) NEGATIVE (NEGATIVE); LEUKOCYTE ESTERASE, URINE NEGATIVE (NEGATIVE); NITRITE,URINE NEGATIVE (NEGATIVE); OCCULT BLOOD,URINE NEGATIVE (NEGATIVE); PROTEIN,URINE NEGATIVE (NEGATIVE); UROBILINOGEN,URINE 0.2 (NORMAL) E.U./dL (NORMAL)
[2020-08-20 16:23] LABS: CLARITY,URINE CLEAR (CLEAR); HCG UR QUAL NEGATIVE
--- NOTE | 2020-08-20 16:25 | ED Physician Documentation ---
History of Present Illness - Stated complaint Stated Complaint: FEMALE - Chief complaint Chief Complaint: Abd Pain - History obtained from History obtained from: Patient - History of Present Illness Timing: How many weeks ago (3) Pain level max: 6 Pain level now: 5 - Additonal information Additional information: Patient is a 20-year-old female who was recently started on Xulane for control. She states that she removed the patch a few days ago. Has had menstrual bleeding for 18 days. She states that it feels "interior specialist" now. She states that at its peak she was using 1 tampon per hour. She states that she feels lightheaded and dizzy today. Normally has regular menses. Has a history of an ovarian cyst. Is having pelvic cramping as well as a headache now. Headache was gradual in onset, holoacranial. She took ibuprofen without relief. Review of Systems Ten Systems: 10 systems reviewed and negative Constitutional: denies: Fever, Chills Ears: denies: Ear pain Nose: denies: Rhinorrhea / runny nose, Congestion Throat: denies: Sore throat Cardiac: denies: Chest pain / pressure Respiratory: denies: Cough, Wheezing GI: denies: Nausea, Vomiting, Diarrhea : denies: Dysuria Skin: denies: Rash Musculoskeletal: denies: Neck pain, Back pain Neurologic: denies: Headache PD PAST MEDICAL HISTORY - Past Medical History Past Medical History: Yes Cardiovascular: None Respiratory: None Endocrine/Autoimmune: None Psych: Depression, Obsessive compulsive disorder Musculoskeletal: None - Past Surgical History Past Surgical History: Yes HEENT: Myringotomy (tubes), Tonsil/Adenoidectomy - Present Medications Home Medications: Ambulatory Orders Medication Instructions Recorded Confirmed Ibuprofen [Motrin] 800 mg PO Q8H PRN #30 tablet 06/22/20 08/20/20 HYDROcod/ACETAM 5/325 [[place] 5/325] 1 - 2 ea PO Q6H PRN #10 tablet 08/20/20 - Allergies Allergies/Adverse Reactions: Allergies Allergy/AdvReac Type Severity Reaction Status Date / Time morphine Allergy Rash Verified 08/20/20 15:36 - Social History Does the pt smoke?: No Smoking Status: Never smoker Does the pt drink ETOH?: No Does the pt have substance abuse?: No Substance Use and Type: Marijuana - Immunizations Immunizations are current?: Yes - POLST Patient has POLST: No PD ED PE NORMAL - Vitals Vital signs reviewed: Yes - General General: Alert and oriented X 3, No acute distress, Well developed/nourished - HEENT HEENT: PERRL, Moist mucous membranes - Neck Neck: Supple, no meningeal sign - Cardiac Cardiac: RRR, Strong equal pulses - Respiratory Respiratory: No respiratory distress, Clear bilaterally - Abdomen Abdomen: Soft, Non tender, Non distended - Female Female : Pt declined - Derm Derm: Warm and dry - Extremities Extremities: No edema - Neuro Neuro: Alert and oriented X 3 - Psych Psych: Normal mood, Normal affect Results - Vitals Vitals: Vital Signs - 24 hr 08/20/20 08/20/20 15:30 17:56 Temperature 36.6 C 36.9 C Heart Rate 75 57 L Respiratory 18 18 Rate Blood Pressure 122/80 108/66 O2 Saturation 100 99 Oxygen O2 Source Room air - Labs Labs: Laboratory Tests 08/20/20 08/20/20 08/20/20 16:05 16:05 16:05 WBC 6.2 RBC 4.83 Hgb 13.7 Hct 41.6 MCV 86.1 MCH 28.4 MCHC 32.9 RDW 13.2 Plt Count 255 MPV 10.2 Neut # (Auto) 4.2 Lymph # (Auto) 1.5 [place] # (Auto) 0.3 Eos # (Auto) 0.0 Baso # (Auto) 0.0 Absolute Nucleated RBC 0.00 Nucleated RBC % 0.0 Sodium 137 Potassium 3.5 Chloride 104 Carbon Dioxide 25 Anion Gap 8.0 BUN 7 Creatinine 0.6 Estimated GFR (MDRD) 126 Glucose 93 Calcium 9.1 Total Bilirubin 0.3 AST 19 ALT 12 Alkaline Phosphatase 23 L Total Protein 7.9 Albumin 4.8 Globulin 3.1 Albumin/Globulin Ratio 1.5 Lipase 33 Urine Color YELLOW Urine Clarity CLEAR Urine pH 6.0 Ur Specific Correll 1.020 Urine Protein NEGATIVE Urine Glucose (UA) NEGATIVE Urine Ketones NEGATIVE Urine Occult Blood NEGATIVE Urine Nitrite NEGATIVE Urine Bilirubin NEGATIVE Urine Urobilinogen 0.2 (NORMAL) Ur Leukocyte Esterase NEGATIVE Ur Microscopic Review NOT INDICATED Urine Culture Comments NOT INDICATED Urine HCG, Qual NEGATIVE Blood Type Antibody Screen 08/20/20 16:14 WBC RBC Hgb Hct MCV MCH MCHC RDW Plt Count MPV Neut # (Auto) Lymph # (Auto) [place] # (Auto) Eos # (Auto) Baso # (Auto) Absolute Nucleated RBC Nucleated RBC % Sodium Potassium Chloride Carbon Dioxide Anion Gap BUN Creatinine Estimated GFR (MDRD) Glucose Calcium Total Bilirubin AST ALT Alkaline Phosphatase Total Protein Albumin Globulin Albumin/Globulin Ratio Lipase Urine Color Urine Clarity Urine pH Ur Specific [place]rell Urine Protein Urine Glucose (UA) Urine Ketones Urine Occult Blood Urine Nitrite Urine Bilirubin Urine Urobilinogen Ur Leukocyte Esterase Ur Microscopic Review Urine Culture Comments Urine HCG, Qual Blood Type A NEGATIVE Antibody Screen NEGATIVE PD MEDICAL DECISION MAKING - ED course Complexity details: reviewed results, re-evaluated patient, considered differential, d/w patient, 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 I discussed the case with Dr. Whyte, gynecology on-call, we reviewed her normal pelvic ultrasound from 4 years ago as well as her normal CT. Does not see an indication for repeat imaging at this time. As the patient's blood counts and vital signs are normal, we will stop with the Xulane and see how she progresses over the next few days. If she fails to improve, would consider an alternative hormonal product to control the bleeding. Patient counseled to use backup control methods. Patient counseled regarding signs and symptoms for which I believe and urgent re- evaluation would be necessary. Patient with good understanding of and agreement to plan and is comfortable going home at this time This document was made in part using voice recognition software. While efforts are made to proofread this document, sound alike and grammatical errors may occur. Departure - Departure Disposition: 01 Home, Self Care Clinical Impression: Dysfunctional uterine bleeding Condition: Good Instructions: ED Bleed Irregular Vaginal, ED Cramping Menstrual Follow-Up: Araceli Swan ARNP [Primary Care Provider] - Within 1 week Prescriptions: HYDROcod/ACETAM 5/325 [[place] 5/325] 1 - 2 ea PO Q6H PRN #10 tablet PRN Reason: Pain Comments: Stop the Xulane patches. Follow-up with your doctor for further care. Your blood counts are normal tonight. I spoke with Dr. Whyte from OB who recommends stopping the control. Use a backup method such as condoms for any sexual activity. Return if you worsen. This should improve over the next 2 to 3 days. [address] not drink alcohol or drive while on narcotic pain medicine. Note that many narcotic pain relievers also contain tylenol/acetaminophen. Please ensure that your total dose of acetaminophen from all sources does not exceed 3 grams (3000mg) per day. You may constipated on this medication, take a stool softener such as "Colace" twice a day while you are on it. Also recommend a [id number] laxative such as senna or MiraLAX any day that you do not have a bowel movement. If you received narcotic pain medication in the emergency department, do not drive or operate machinery for the next 24 hours. Discharge Date/Time: 08/20/20 18:01
[2020-08-20 16:26] LABS: ALBUMIN 4.8 g/dL (3.2-5.5); ALBUMIN/GLOBULIN RATIO 1.5 (1.0-2.2); BILIRUBIN,TOTAL 0.3 mg/dL (0.2-1.0); CALCIUM 9.1 mg/dL (8.5-10.3); CREATININE 0.6 mg/dL (0.4-1.0); TOTAL PROTEIN 7.9 g/dL (6.7-8.2)
[2020-08-20] MEDS ORDERED: KETOROLAC 30 MG/ML VIAL IVP STA (17:46)
[2020-08-20 17:57] VITALS: BP 108/66
== END 2020-08-20 18:01 | disposition home or self-care (01) ==
LOC: ED 15:18
DX: N93.8 Other specified abnormal uterine and vaginal bleeding (principal)
CPT/HCPCS: 36415; 80053; 81003; 81025; 83690; 85025; 86850; 86900; 86901; 96374; 99284; A9270; 81001; 87086

== ENCOUNTER 2020-08-21 23:45 | Emergency (ER) | payer MEDICAID ==
[2020-08-22] MEDS ORDERED: ESTROGENS, CONJUGATED 25 MG VIAL IVP STA (00:24)
[2020-08-22] MEDS ORDERED: ONDANSETRON 4 MG/2 ML VIAL IVP STA (00:27)
[2020-08-22 00:31] LABS: BASOPHILS # (AUTO) 0.1 10^3/uL (0.0-0.1); BASOPHILS % (AUTO) 0.6 %; EOSINOPHILS # (AUTO) 0.1 10^3/uL (0.0-0.7); EOSINOPHILS % (AUTO) 0.7 %; HGB - HEMOGLOBIN 13.1 g/dL (12.0-16.0); LYMPHOCYTES # (AUTO) 2.2 10^3/uL (1.5-3.5); LYMPHOCYTES % (AUTO) 22.1 %; MEAN CORPUSCULAR HEMOGLOBIN 28.6 pg (27.0-31.0); MEAN CORPUSCULAR HGB CONC 32.9 g/dL (32.0-36.0); MEAN CORPUSCULAR VOLUME 86.9 fL (81.0-99.0); MEAN PLATELET VOLUME 10.2 fL (7.9-10.8); MONOCYTES # (AUTO) 0.7 10^3/uL (0.0-1.0); MONOCYTES % (AUTO) 6.4 %; NEUTROPHILS # (AUTO) 7.1 10^3/uL (1.5-6.6); PLT - PLATELET COUNT 254 10^3/uL (130-450); RED BLOOD COUNT 4.58 10^6/uL (4.20-5.40); RED CELL DISTRIBUTION WIDTH 13.2 % (12.0-15.0); WHITE BLOOD COUNT 10.2 x10^3/uL (4.8-10.8)
[2020-08-22] MEDS ORDERED: KETOROLAC 30 MG/ML VIAL IVP STA (00:33)
[2020-08-22 00:39] LABS: CALCIUM 9.2 mg/dL (8.5-10.3); CREATININE 0.7 mg/dL (0.4-1.0)
[2020-08-22 01:11] LABS: BILIRUBIN,URINE NEGATIVE (NEGATIVE); GLUCOSE, URINE (UA) NEGATIVE (NEGATIVE); KETONES,URINE (UA) NEGATIVE (NEGATIVE); LEUKOCYTE ESTERASE, URINE NEGATIVE (NEGATIVE); NITRITE,URINE NEGATIVE (NEGATIVE); OCCULT BLOOD,URINE LARGE (NEGATIVE); PH,URINE 5.5 PH (5.0-7.5); PROTEIN,URINE TRACE mg/dL (NEGATIVE); UROBILINOGEN,URINE 0.2 (NORMAL) E.U./dL (NORMAL)
[2020-08-22 01:13] LABS: CLARITY,URINE CLEAR (CLEAR); HCG UR QUAL NEGATIVE
[2020-08-22 01:17] LABS: BACTERIA,URINE Rare /HPF (None Seen); SQUAMOUS EPITHELIAL CELL,UR MOD Squamous (<= Few)
[2020-08-22 01:18] LABS: MUCUS,URINE Few Strands
--- NOTE | 2020-08-22 01:30 | ED Physician Documentation ---
PD HPI FEMALE - Stated complaint Stated Complaint: FEMALE - Chief complaint Chief Complaint: Abd Pain - History obtained from History obtained from: Patient - History of Present Illness Timing - onset: How many days ago (19) Timing - duration: Days (19) Timing - details: Gradual onset, Still present Associated symptoms: Pelvic pain, Vaginal bleeding Contributing factors: control (recently on xulane). No: Similar symptoms before: Diagnosis (dub) Recently seen: Emergency Dept - Additional information Additional information: 20-year-old female has been put on Xulane for control about 2 months ago and she has developed excessive vaginal bleeding beginning about 19 days ago. She was seen in the ED 2 days ago and her xulane was discontinued and she has continued to bleed. Today she has been saturating one tampon per hour and she soaked through the tampon she put in when she had to call off work tonight and saturated her jeans. She reports passing egg sized clots and experiencing light headedness. Review of Systems Constitutional: denies: Fever Eyes: denies: Decreased vision Ears: denies: Ear pain Nose: denies: Congestion Throat: denies: Sore throat Cardiac: denies: Chest pain / pressure, Palpitations Respiratory: denies: Dyspnea, Cough GI: reports: Abdominal Pain. denies: Nausea, Vomiting, Constipation, Diarrhea : reports: Vaginal bleeding. denies: Dysuria, Frequency Skin: denies: Rash PD PAST MEDICAL HISTORY - Past Medical History Past Medical History: Yes Cardiovascular: None Respiratory: None Neuro: None Endocrine/Autoimmune: None GI: None SANITARY AIDE: Ovarian cysts HEENT: None Psych: Depression, Obsessive compulsive disorder Musculoskeletal: None Derm: None - Past Surgical History Past Surgical History: Yes HEENT: Myringotomy (tubes), Tonsil/Adenoidectomy - Present Medications Home Medications: Ambulatory Orders Medication Instructions Recorded Confirmed Ibuprofen [Motrin] 800 mg PO Q8H PRN #30 tablet 06/22/20 08/20/20 HYDROcod/ACETAM 5/325 [[place] 5/325] 1 - 2 ea PO Q6H PRN #10 tablet 08/20/20 Buspirone HCl 10 mg PO BID 08/22/20 08/22/20 Medroxyprogesterone Acetate 10 mg PO DAILY #10 tablet 08/22/20 [Provera] QUEtiapine [SEROquel] 25 mg PO BID 08/22/20 08/22/20 - Allergies Allergies/Adverse Reactions: Allergies Allergy/AdvReac Type Severity Reaction Status Date / Time morphine Allergy Rash Verified 08/20/20 15:36 - Social History Does the pt smoke?: No Smoking Status: Never smoker Does the pt drink ETOH?: No Does the pt have substance abuse?: No - Immunizations Immunizations are current?: Yes - POLST Patient has POLST: No PD ED PE NORMAL - Vitals Vital signs reviewed: Yes (normal ) - General General: Alert and oriented X 3, No acute distress, Well developed/nourished - HEENT HEENT: Atraumatic, PERRL, EOMI - Neck Neck: Supple, no meningeal sign, No bony TTP - Cardiac Cardiac: RRR, No murmur - Respiratory Respiratory: No respiratory distress, Clear bilaterally - Abdomen Abdomen: Normal bowel sounds, Soft, Non distended, No organomegaly, Other (suprapubic tenderness without garding or rebound) - Back Back: No CVA TTP, No spinal TTP - Derm Derm: Normal color, Warm and dry, No rash - Extremities Extremities: No deformity, No edema - Neuro Neuro: Alert and oriented X 3, 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, No motor deficit, No sensory deficit, Normal speech Eye Opening: Spontaneous Motor: Obeys Commands Verbal: Oriented GCS Score: 15 - Psych Psych: Normal mood, Normal affect Results - Vitals Vitals: Vital Signs - 24 hr 08/21/20 08/22/20 23:50 02:04 Temperature 37.3 C 36.5 C Heart Rate 82 68 Respiratory 16 14 Rate Blood Pressure 125/73 119/64 O2 Saturation 98 100 Oxygen O2 Source Room air - Labs Labs: Laboratory Tests 08/22/20 08/22/20 08/22/20 00:25 00:25 00:37 WBC 10.2 RBC 4.58 Hgb 13.1 Hct 39.8 MCV 86.9 MCH 28.6 MCHC 32.9 RDW 13.2 Plt Count 254 MPV 10.2 Neut # (Auto) 7.1 H Lymph # (Auto) 2.2 Benzie # (Auto) 0.7 Eos # (Auto) 0.1 Baso # (Auto) 0.1 Absolute Nucleated RBC 0.00 Nucleated RBC % 0.0 Sodium 140 Potassium 3.3 L Chloride 107 Carbon Dioxide 24 Anion Gap 9.0 BUN 6 Creatinine 0.7 Estimated GFR (MDRD) 106 Glucose 90 Calcium 9.2 Urine Color YELLOW Urine Clarity CLEAR Urine pH 5.5 Ur Specific [place] >=1.030 H Urine Protein TRACE Urine Glucose (UA) NEGATIVE Urine Ketones NEGATIVE Urine Occult Blood LARGE H Urine Nitrite NEGATIVE Urine Bilirubin NEGATIVE Urine Urobilinogen 0.2 (NORMAL) Ur Leukocyte Esterase NEGATIVE Urine RBC 6-10 H Urine WBC 0-3 Ur Squamous Epith Cells MOD Squamous H Urine Bacteria Rare Urine Mucus Few Strands Ur Microscopic Review INDICATED Urine Culture Comments NOT INDICATED Urine HCG, Qual NEGATIVE - Rads (name of study) pelvic u/s Radiology: Prelim report reviewed (Impression: No acute abnormality is seen multiple small follicles in both ovaries.), EMP read indepedently, See rad report Procedures - IVC sono (time) 0015 Bedside IVC sono: IVC measures (cm) (2.22), Euvolemia PD MEDICAL DECISION MAKING - ED course Complexity details: reviewed old records, reviewed results, re-evaluated patient, considered differential, d/w patient ED course: 20-year-old female with dysfunctional bleeding for nearly 2-1/2 weeks has continued to bleed and she is describing bleeding in an excessive quantity. Her blood counts appear stable they have dropped slightly and she is not volume depleted. I have consulted Dr. Traci Mustafa in the case and she recommends administration of estrogen intravenously and undertaking pelvic ultrasound. She recommends addition of Provera 10 mg daily until bleeding has ceased. The pelvic ultrasound is unremarkable and the bleeding is improved. Departure - Departure Disposition: 01 Home, Self Care Clinical Impression: Dysfunctional uterine bleeding Condition: Stable Instructions: ED Bleed Irregular Vaginal Follow-Up: Araceli Swan ARNP [Primary Care Provider] - [facility] [Provider Group] Prescriptions: Medroxyprogesterone Acetate [Provera] 10 mg PO DAILY #10 tablet Discharge Date/Time: 08/22/20 02:17
[2020-08-22 02:16] VITALS: BP 119/64
--- NOTE | 2020-08-22 09:09 | Ultrasound Report ---
PROCEDURE: Pelvic Complete INDICATIONS: dub TECHNIQUE: Real-time transabdominal scanning was performed of the pelvic organs, with image documentation. COMPARISON: CT dated 11/01/2015. FINDINGS: Uterus: Uterus is normal in size at 8.5 x 4.6 x 3.9 cm. Endometrium measures 5.2 mm in combined thi ckness. No endometrial mass or fluid. No discrete uterine fibroid. Ovaries: Right ovary measures 3.7 x 2.1 x 1.9 cm in size. Left ovary measures 3.2 x 1.7 x 2.2 cm in size. Subcentimeter follicles are noted in bilateral ovaries. No gross solid appearing ovarian lesion . Normal blood flow is seen in bilateral ovaries on color Doppler images. Other: No free pelvic fluid. Limited scanning through the kidneys shows no hydronephrosis. IMPRESSION: Unremarkable ultrasound examination of the uterus. Subcentimeter follicles seen in bilateral ovaries. No solid appearing ovarian lesion. No evidence of ovarian torsion. Reviewed by: Doug Lara MD on 08/22/2020 9:08 AM PST Approved by: Doug Lara MD on 08/22/2020 9:08 AM PST Station ID: [id number]
--- NOTE | 2020-08-22 09:10 | Ultrasound Report ---
PROCEDURE: Transvaginal INDICATIONS: dub TECHNIQUE: Real-time transvaginal scanning was performed of the pelvic organs, with image documentation. COMPARISON: CT dated 11/01/2015. FINDINGS: Uterus: Uterus is normal in size at 8.5 x 4.6 x 3.9 cm. Endometrium measures 5.2 mm in combined thi ckness. No endometrial mass or fluid. No discrete uterine fibroid. Ovaries: Right ovary measures 3.7 x 2.1 x 1.9 cm in size. Left ovary measures 3.2 x 1.7 x 2.2 cm in size. Subcentimeter follicles are noted in bilateral ovaries. No gross solid appearing ovarian lesion . Normal blood flow is seen in bilateral ovaries on color Doppler images. Other: No free pelvic fluid. Limited scanning through the kidneys shows no hydronephrosis. IMPRESSION: Unremarkable ultrasound examination of the uterus. Subcentimeter follicles seen in bilateral ovaries. No solid appearing ovarian lesion. No evidence of ovarian torsion. Reviewed by: Doug Lara MD on 08/22/2020 9:09 AM PST Approved by: Doug Lara MD on 08/22/2020 9:09 AM PST Station ID: [id number]
== END 2020-08-22 02:17 | disposition home or self-care (01) ==
LOC: ED 23:45
DX: N93.8 Other specified abnormal uterine and vaginal bleeding (principal)
CPT/HCPCS: 36415; 80048; 81001; 81003; 81025; 85025; 87086; 96374; 96375; 99284

== ENCOUNTER 2020-12-07 08:00 | Outpatient (CLI) | payer MEDICAID | END 2020-12-07 23:59 | disposition home or self-care (01) | LOC: LAB.N 08:00 | PROVIDERS: ATTEND Physician Assistant Medical | DX: B34.9 Viral infection, unspecified (principal); Z20.822 Contact with and (suspected) exposure to COVID-19 ==

== ENCOUNTER 2021-01-02 18:39 | Outpatient (CLI) | payer OTHER, MEDICAID ==
--- NOTE | 2021-01-03 10:19 | XRAY Report ---
PROCEDURE: Shoulder 2 View RT INDICATIONS: STRAIN OF MUSCLE, FASCIA AND TENDON AT SHOULDER OF R ARM TECHNIQUE: 2 views of the shoulder were acquired. COMPARISON: None. FINDINGS: Bones: No fractures or dislocations. No suspicious bony lesions. Visualized ribs appear intact. Soft tissues: No suspicious soft tissue calcifications. IMPRESSION: No acute fracture. No osseous lesion. If symptoms and/or clinical suspicion for patholog y continue, further assessment with repeat plain films, or advanced imaging (e.g., CT, MRI, or bone s can) is recommended for further assessment. Reviewed by: Delonte Dee MD on 01/03/2021 10:18 AM PDT Approved by: Delonte Dee MD on 01/03/2021 10:18 AM PDT Station ID: [id number]
== END 2021-01-02 23:59 | disposition home or self-care (01) ==
LOC: DI.N 18:39
PROVIDERS: ATTEND Nurse Practitioner
DX: S46.911A Strain of unspecified muscle, fascia and tendon at shoulder and upper arm level, right arm, initial encounter (principal)

== ENCOUNTER 2021-02-18 19:58 | Emergency (ER) | payer MEDICAID ==
[2021-02-18 21:45] LABS: BASOPHILS % (AUTO) 0.6 %; EOSINOPHILS % (AUTO) 0.6 %; HCT - HEMATOCRIT 36.6 % (37.0-47.0); HGB - HEMOGLOBIN 12.4 g/dL (12.0-16.0); LYMPHOCYTES # (AUTO) 1.4 10^3/uL (1.5-3.5); LYMPHOCYTES % (AUTO) 21.5 %; MEAN CORPUSCULAR HEMOGLOBIN 28.8 pg (27.0-31.0); MEAN CORPUSCULAR HGB CONC 33.9 g/dL (32.0-36.0); MEAN CORPUSCULAR VOLUME 84.9 fL (81.0-99.0); MEAN PLATELET VOLUME 9.7 fL (7.9-10.8); MONOCYTES # (AUTO) 0.4 10^3/uL (0.0-1.0); MONOCYTES % (AUTO) 5.4 %; NEUTROPHILS # (AUTO) 4.8 10^3/uL (1.5-6.6); NEUTROPHILS % (AUTO) 71.6 %; PLT - PLATELET COUNT 229 10^3/uL (130-450); RED BLOOD COUNT 4.31 10^6/uL (4.20-5.40); RED CELL DISTRIBUTION WIDTH 12.7 % (12.0-15.0); WHITE BLOOD COUNT 6.7 x10^3/uL (4.8-10.8)
[2021-02-18 22:00] VITALS: BP 117/72
[2021-02-18 22:28] LABS: ALBUMIN 4.5 g/dL (3.2-5.5); ALBUMIN/GLOBULIN RATIO 1.9 (1.0-2.2); BILIRUBIN,TOTAL 0.5 mg/dL (0.2-1.0); CALCIUM 8.9 mg/dL (8.5-10.3); CREATININE 0.6 mg/dL (0.4-1.0); POTASSIUM 3.7 mmol/L (3.5-5.0); TOTAL PROTEIN 6.9 g/dL (6.7-8.2)
== END 2021-02-18 22:04 | disposition left against medical advice (07) ==
LOC: ED 19:58
DX: Z53.21 Procedure and treatment not carried out due to patient leaving prior to being seen by health care provider (principal)
CPT/HCPCS: 36415; 80053; 83690; 84484; 85025; 93005

== ENCOUNTER 2021-04-24 13:23 | Emergency (ER) | payer MEDICAID ==
[2021-04-24 14:00] LABS: BASOPHILS % (AUTO) 0.6 %; EOSINOPHILS % (AUTO) 0.4 %; HCT - HEMATOCRIT 42.5 % (37.0-47.0); HGB - HEMOGLOBIN 14.1 g/dL (12.0-16.0); MEAN CORPUSCULAR HEMOGLOBIN 28.7 pg (27.0-31.0); MEAN CORPUSCULAR HGB CONC 33.2 g/dL (32.0-36.0); MEAN CORPUSCULAR VOLUME 86.4 fL (81.0-99.0); MEAN PLATELET VOLUME 9.5 fL (7.9-10.8); MONOCYTES # (AUTO) 0.7 10^3/uL (0.0-1.0); MONOCYTES % (AUTO) 10.3 %; NEUTROPHILS # (AUTO) 5.4 10^3/uL (1.5-6.6); NEUTROPHILS % (AUTO) 74.4 %; PLT - PLATELET COUNT 205 10^3/uL (130-450); RED BLOOD COUNT 4.92 10^6/uL (4.20-5.40); RED CELL DISTRIBUTION WIDTH 12.4 % (12.0-15.0); WHITE BLOOD COUNT 7.2 x10^3/uL (4.8-10.8)
[2021-04-24] MEDS ORDERED: oxyCODONE 5 MG TABLET PO STA (14:05)
[2021-04-24 14:15] LABS: ALBUMIN 4.9 g/dL (3.2-5.5); ALBUMIN/GLOBULIN RATIO 1.3 (1.0-2.2); BILIRUBIN,TOTAL 0.8 mg/dL (0.2-1.0); CALCIUM 9.4 mg/dL (8.5-10.3); CREATININE 0.8 mg/dL (0.4-1.0); POTASSIUM 3.3 mmol/L (3.5-5.0); TOTAL PROTEIN 8.6 g/dL (6.7-8.2)
[2021-04-24 14:25] LABS: BILIRUBIN,URINE NEGATIVE (NEGATIVE); GLUCOSE, URINE (UA) NEGATIVE (NEGATIVE); KETONES,URINE (UA) NEGATIVE (NEGATIVE); LEUKOCYTE ESTERASE, URINE TRACE (NEGATIVE); NITRITE,URINE POSITIVE (NEGATIVE); OCCULT BLOOD,URINE TRACE-INTA (NEGATIVE); PH,URINE 5.5 PH (5.0-7.5); PROTEIN,URINE TRACE mg/dL (NEGATIVE); UROBILINOGEN,URINE 0.2 (NORMAL) E.U./dL (NORMAL)
[2021-04-24 14:27] LABS: CLARITY,URINE CLEAR (CLEAR)
[2021-04-24 14:41] LABS: RBC,URINE 0-5 /HPF (0-5); WBC CLUMPS,URINE PRESENT
[2021-04-24 14:43] LABS: BACTERIA,URINE Moderate /HPF (None Seen); MUCUS,URINE Marked Strands; SQUAMOUS EPITHELIAL CELL,UR MOD Squamous (<= Few)
[2021-04-24] MEDS ORDERED: cefTRIAXone 1 GM VIAL IVP STA (15:31)
--- NOTE | 2021-04-24 15:32 | Ultrasound Report ---
PROCEDURE: Abdomen Limited INDICATIONS: RUQ abd pain TECHNIQUE: Real-time focused scanning was performed of the abdomen, with image documentation. COMPARISON: None FINDINGS: Liver is normal in size and normal in echotexture. Gallbladder sonographically normal. No gallstones. No gallbladder wall thickening with gallbladder wa ll measuring 2.2 mm. No pericholecystic fluid. No sonographic Ohara sign. Biliary tree is nondilated. Common bile duct measures 2.4 mm. Pancreas is sonographically normal. Right kidney is sonographically normal. Intrahepatic IVC is patent. IMPRESSION: No sonographic evidence of cholelithiasis or cholecystitis. If there is continued clinical concern fo r cholecystitis, a nuclear medicine HIDA scan should be considered for further evaluation. Reviewed by: Alysia Pace MD, PhD on 04/24/2021 3:31 PM PDT Approved by: Alysia Pace MD, PhD on 04/24/2021 3:31 PM PDT Station ID: [id number]
[2021-04-24] MEDS ORDERED: LIDOCAINE 1% 2 ML VIAL MC ONE (15:34)
[2021-04-24] MEDS ORDERED: cefTRIAXone 1 GM VIAL IM STA (15:34)
--- NOTE | 2021-04-24 15:37 | ED Physician Documentation ---
History of Present Illness - Stated complaint Stated Complaint: RT SIDE PX - Chief complaint Chief Complaint: Abd Pain - History obtained from History obtained from: Patient - History of Present Illness Timing: How many days ago (2) Pain level max: 7 Pain level now: 7 - Additonal information Additional information: Patient is a 20-year-old female who presents to the emergency department for right-sided flank pain. Ongoing for the past 2 to 3 days. Nothing makes it better or worse. No fevers. No chills. No nausea. No vomiting. Does have dysuria and urinary frequency. Has had pyelonephritis in the past. Denies any vaginal bleeding, discharge, itching. Review of Systems Ten Systems: 10 systems reviewed and negative Constitutional: denies: Fever, Chills Cardiac: denies: Chest pain / pressure Respiratory: denies: Cough GI: denies: Vomiting, Diarrhea Skin: denies: Rash Musculoskeletal: denies: Neck pain, Back pain Neurologic: denies: Headache PD PAST MEDICAL HISTORY - Past Medical History Cardiovascular: None Respiratory: None Neuro: None Endocrine/Autoimmune: None GI: None ONCOLOGIST: Ovarian cysts HEENT: None Psych: Depression, Obsessive compulsive disorder Musculoskeletal: None Derm: None - Past Surgical History Past Surgical History: Yes HEENT: Myringotomy (tubes), Tonsil/Adenoidectomy - Present Medications Home Medications: Ambulatory Orders Medication Instructions Recorded Confirmed Ibuprofen [Motrin] 800 mg PO Q8H PRN #30 tablet 06/22/20 08/20/20 HYDROcod/ACETAM 5/325 [[place] 5/325] 1 - 2 ea PO Q6H PRN #10 tablet 08/20/20 Buspirone HCl 10 mg PO BID 08/22/20 08/22/20 Medroxyprogesterone Acetate 10 mg PO DAILY #10 tablet 08/22/20 [Provera] QUEtiapine [SEROquel] 25 mg PO BID 08/22/20 08/22/20 Cefdinir 300 mg PO BID #20 cap 04/24/21 Ondansetron Odt [Zofran] 4 mg TL Q6H PRN #10 tablet 04/24/21 Oxycodone HCl/Acetaminophen 1 - 2 each PO Q6H PRN #14 tablet 04/24/21 [Percocet 5-325 mg Tablet] - Allergies Allergies/Adverse Reactions: Allergies Allergy/AdvReac Type Severity Reaction Status Date / Time morphine Allergy Rash Verified 04/24/21 13:46 - Social History Does the pt smoke?: No Smoking Status: Never smoker Does the pt drink ETOH?: No Does the pt have substance abuse?: No - Immunizations Immunizations are current?: Yes - POLST Patient has POLST: No PD ED PE NORMAL - Vitals Vital signs reviewed: Yes - General General: Alert and oriented X 3, No acute distress, Well developed/nourished - HEENT HEENT: Moist mucous membranes - Neck Neck: Supple, no meningeal sign - Cardiac Cardiac: RRR, Strong equal pulses - Respiratory Respiratory: No respiratory distress, Clear bilaterally - Abdomen Abdomen: Soft, Non distended, Other (Tender to palpation right upper quadrant.) - Back Back: Other (Right-sided CVA tenderness) - Derm Derm: Warm and dry - Extremities Extremities: No edema - Neuro Neuro: Alert and oriented X 3 - Psych Psych: Normal mood, Normal affect Results - Vitals Vitals: Vital Signs - 24 hr 04/24/21 04/24/21 04/24/21 13:43 15:18 16:02 Temperature 36.5 C 37.2 C Heart Rate 88 63 62 Respiratory 14 16 16 Rate Blood Pressure 135/81 H 114/70 127/71 O2 Saturation 96 99 98 Oxygen O2 Source Room air - Labs Labs: Laboratory Tests 04/24/21 04/24/21 04/24/21 13:55 13:55 14:18 WBC 7.2 RBC 4.92 Hgb 14.1 Hct 42.5 MCV 86.4 MCH 28.7 MCHC 33.2 RDW 12.4 Plt Count 205 MPV 9.5 Neut # (Auto) 5.4 Lymph # (Auto) 1.0 L [place] # (Auto) 0.7 Eos # (Auto) 0.0 Baso # (Auto) 0.0 Absolute Nucleated RBC 0.00 Nucleated RBC % 0.0 Sodium 140 Potassium 3.3 L Chloride 104 Carbon Dioxide 26 Anion Gap 10.0 BUN 8 Creatinine 0.8 Estimated GFR (MDRD) 91 Glucose 84 Calcium 9.4 Total Bilirubin 0.8 AST 16 ALT 12 Alkaline Phosphatase 35 L Total Protein 8.6 H Albumin 4.9 Globulin 3.7 Albumin/Globulin Ratio 1.3 Lipase 25 Urine Color YELLOW Urine Clarity CLEAR Urine pH 5.5 Ur Specific [place] 1.025 Urine Protein TRACE Urine Glucose (UA) NEGATIVE Urine Ketones NEGATIVE Urine Occult Blood TRACE-INTA Urine Nitrite POSITIVE H Urine Bilirubin NEGATIVE Urine Urobilinogen 0.2 (NORMAL) Ur Leukocyte Esterase TRACE H Urine RBC 0-5 Urine WBC 11-25 H Urine WBC Clumps PRESENT Ur Squamous Epith Cells MOD Squamous H Urine Bacteria Moderate H Urine Mucus Marked Strands Ur Microscopic Review INDICATED Urine Culture Comments NOT INDICATED - Rads (name of study) Right upper quadrant ultrasound Radiology: Final report received, EMP read contemporaneously, See rad report (No acute abnormality) PD MEDICAL DECISION MAKING - ED course Complexity details: reviewed results, re-evaluated patient, considered differential, d/w patient ED course: 20-year-old female with what appears to be right-sided pyelonephritis. No history of ureteral stones. We did discuss a CT scan, patient declines this at this time and I think that is reasonable. We will place her on antibiotics, pain medication for home. Patient is well-appearing, nontoxic. Afebrile. No evidence of sepsis. Patient counseled regarding signs and symptoms for which I believe and urgent re-evaluation would be necessary. Patient with good understanding of and agreement to plan and is comfortable going home at this time This document was made in part using voice recognition software. While efforts are made to proofread this document, sound alike and grammatical errors may occur. Departure - Departure Disposition: 01 Home, Self Care Clinical Impression: Pyelonephritis Condition: Good Instructions: ED Kidney Infec Female Follow-Up: Araceli Swan ARNP [Primary Care Provider] - Within 1 week Prescriptions: Cefdinir 300 mg PO BID #20 cap Oxycodone HCl/Acetaminophen [Percocet 5-325 mg Tablet] 1 - 2 each PO Q6H PRN #14 tablet PRN Reason: pain Ondansetron Odt [Zofran] 4 mg TL Q6H PRN #10 tablet PRN Reason: Nausea / Vomiting Comments: Take all antibiotics until gone. Return if you worsen. I have prescribed you pain and nausea medication as well. This should start to improve in the next 24 to 48 hours. Your prescriptions were sent to [facility] in [place] I am prescribing a short course of narcotic pain medication for you. These are potentially dangerous and addictive medications that should be used carefully. These medications may constipate you. Take an [id number]-stl-tytxfut stool softener (docusate) twice daily with plenty of water while taking these medications. If you go 24 hours without a bowel movement, take unva-[id number] miralax, per package instructions. Do not drink or drive while taking these medications. If you received narcotic or sedating medications while in the emergency department, do not drive for 24 hours. Store this medication in a safe, secure place and out of reach of children. It is a violation of federal law to give or sell this medication to another person or to use in a manner other than prescribed. The ED will not refill narcotic prescriptions, including prescriptions lost or stolen. To dispose of unwanted medications: 1. [facility] at [address] in [place] has a medication drop box. They accept prescription medications (in pill form) Thursday through Thursday 9:00 a.m. to 5:00 p.m. 2. The [facility] [employer] accepts prescription medications (in pill form only) for disposal year round. Call for more information. 3. Contact the [facility] for the next [facility] sponsored prescription drug collection event. , [phone], or [phone]; Discharge Date/Time: 04/24/21 16:03
[2021-04-24 16:03] VITALS: BP 127/71
== END 2021-04-24 16:03 | disposition home or self-care (01) ==
LOC: ED 13:23
DX: N12 Tubulo-interstitial nephritis, not specified as acute or chronic (principal)
CPT/HCPCS: 36415; 76705; 80053; 81001; 83690; 85025; 96372; 99284; A9270; 81003; 87086

== ENCOUNTER 2021-05-02 21:26 | Outpatient (CLI) | payer MEDICAID | END 2021-05-02 21:27 | disposition EMS.NT | LOC: EMS 21:26 | DX: R55 Syncope and collapse (principal) ==

== ENCOUNTER 2022-03-13 16:13 | Emergency (ER) | payer MEDICAID ==
[2022-03-13 16:24] VITALS: BP 119/77
== END 2022-03-13 17:45 | disposition left against medical advice (07) ==
LOC: ED 16:13
DX: Z53.21 Procedure and treatment not carried out due to patient leaving prior to being seen by health care provider (principal)

== ENCOUNTER 2023-04-16 14:14 | Outpatient (CLI) | payer MEDICAID ==
[2023-04-16 14:52] LABS: BASOPHILS # (AUTO) 0.1 10^3/uL (0.0-0.1); EOSINOPHILS # (AUTO) 0.1 10^3/uL (0.0-0.7); HCT - HEMATOCRIT 38.9 % (37.0-47.0); HGB - HEMOGLOBIN 13.2 g/dL (12.0-16.0); LYMPHOCYTES % (AUTO) 34.1 %; MEAN CORPUSCULAR HEMOGLOBIN 27.9 pg (27.0-31.0); MEAN CORPUSCULAR HGB CONC 33.9 g/dL (32.0-36.0); MEAN CORPUSCULAR VOLUME 82.2 fL (81.0-99.0); MEAN PLATELET VOLUME 9.9 fL (7.9-10.8); MONOCYTES # (AUTO) 0.4 10^3/uL (0.0-1.0); MONOCYTES % (AUTO) 6.1 %; NEUTROPHILS # (AUTO) 3.4 10^3/uL (1.5-6.6); NEUTROPHILS % (AUTO) 57.6 %; PLT - PLATELET COUNT 247 10^3/uL (130-450); RED BLOOD COUNT 4.73 10^6/uL (4.20-5.40); RED CELL DISTRIBUTION WIDTH 12.7 % (12.0-15.0); WHITE BLOOD COUNT 5.9 x10^3/uL (4.8-10.8)
[2023-04-16 15:00] LABS: ALBUMIN 4.9 g/dL (3.2-5.5); ALBUMIN/GLOBULIN RATIO 2.1 (1.0-2.2); BILIRUBIN,TOTAL 0.8 mg/dL (0.2-1.0); CALCIUM 9.7 mg/dL (8.5-10.3); CREATININE 0.7 mg/dL (0.6-1.3); CRP - C-REACTIVE PROTEIN 0.5 mg/dL (<0.5); POTASSIUM 4.2 mmol/L (3.5-4.5); TOTAL PROTEIN 7.2 g/dL (6.4-8.9)
[2023-04-16 15:08] LABS: THYROID STIMULATING HORMONE 0.57 uIU/mL (0.34-5.60)
== END 2023-04-16 14:15 | disposition home or self-care (01) ==
LOC: LAB 14:14
PROVIDERS: ATTEND Physician Assistant Medical
DX: R51.9 Headache, unspecified (principal); R23.8 Other skin changes; R59.1 Generalized enlarged lymph nodes
CPT/HCPCS: 36415; 80053; 84443; 85025; 85651; 86140

== ENCOUNTER 2023-04-21 22:06 | Outpatient (CLI) | payer MEDICAID ==
--- NOTE | 2023-04-22 09:11 | Ultrasound Report ---
PROCEDURE: Head or Neck Soft Tissue INDICATIONS: ENLARGED THYROID TECHNIQUE: Real-time scanning was performed of the thyroid gland, with image documentation. COMPARISON: Thyroid ultrasound 10/31/2016 FINDINGS: Right: Thyroid lobe measures 6.0 x 2.0 x 2.5 cm, and is heterogeneous in echotexture. Left: Thyroid lobe measures 6.0 x 1.8 x 1.8 cm, and is heterogeneous in echotexture. Isthmus: 3.4 mm thick. No thyroid nodules are identified. IMPRESSION: Bilateral heterogeneous thyroid. No discrete thyroid nodules identified. ACR TI-RADS definitions and recommendations: TI-RADS 1 (benign): 0 points. FNA not needed. TI-RADS 2 (not suspicious): 2 points. FNA not needed. TI-RADS 3 (mildly suspicious): 3 points. "FNA if 2.5 cm or larger, follow up if 1.5 cm or larger (at 1, 3, and 5 years). TI-RADS 4 (moderately suspicious): 4-6 points. "FNA if 1.5 cm or larger, follow up if 1 cm or larger (at 1, 2, 3, and 5 years). TI-RADS 5 (highly suspicious): 7 points or more. "FNA if 1 cm or larger, follow up if 0.5 cm or larger (every year for 5 years). Reviewed by: Renetta Collins MD on 04/22/2023 9:10 AM PDT Approved by: Renetta Collins MD on 04/22/2023 9:10 AM PDT Station ID: [id number]
== END 2023-04-21 22:07 | disposition home or self-care (01) ==
LOC: DI 22:06
PROVIDERS: ATTEND Physician Assistant Medical
DX: E01.0 Iodine-deficiency related diffuse (endemic) goiter (principal)

== ENCOUNTER 2023-04-25 19:53 | Outpatient (CLI) | payer MEDICAID ==
[2023-04-25 20:49] LABS: THYROID STIMULATING HORMONE 0.75 uIU/mL (0.34-5.60)
[2023-04-25 20:55] LABS: FERRITIN 30.9 ng/mL (11.0-306.8)
[2023-04-25 20:56] LABS: PROLACTIN 13.36 ng/mL
[2023-04-28 04:07] LABS: THYROID PEROXIDASE (TPO) AB <9 IU/mL (0-34)
== END 2023-04-25 19:54 | disposition home or self-care (01) ==
LOC: LAB 19:53
PROVIDERS: ATTEND Internal Medicine
DX: R53.83 Other fatigue (principal); R51.9 Headache, unspecified
CPT/HCPCS: 36415; 82728; 83540; 84146; 84439; 84443; 84466; 84481; 86376; 86800

== ENCOUNTER 2023-06-29 13:20 | Outpatient (CLI) | payer MEDICAID ==
--- NOTE | 2023-06-30 12:01 | Ultrasound Report ---
ULTRASOUND OF RIGHT AXILLA: 06/29/2023 CLINICAL: Palpable right axilla lump. No prior exams were available for comparison. Color flow ultrasound of the right axilla was performed. [place] scale images of the real-time examinat ion were reviewed. No sonographic abnormality is seen in the area of clinical concern in the right axilla. There is a mo rphologically normal lymph node seen in the right axilla. IMPRESSION: BENIGN No sonographic abnormality in the area of clinical concern in the right axilla. Normal appearing righ t axillary lymph node. No sonographic evidence of malignancy. Recommend routine screening mammogram s tarting at age 40. Clinical follow-up is also recommended, and further management of palpable abnormalities or other foc al signs or symptoms should be based on the results of clinical evaluation. If palpable abnormality o r other concerning symptom persists or progresses, further clinical evaluation should be considered. Findings and recommendations were conveyed to the patient during today's evaluation. This exam was interpreted at Station ID: [id number]. Electronically Signed By: Renetta Collins M.D., PH.D eb/:06/29/2023 13:53:17 Ultrasound BI-RADS: 2 Benign BI-RADS CATEGORY: (2) - 2 Unspecified - other recall n/a LATERALITY: (B)
== END 2023-06-29 13:21 | disposition home or self-care (01) ==
LOC: DI 13:20
PROVIDERS: ATTEND Registered Nurse
DX: R22.2 Localized swelling, mass and lump, trunk (principal)

== ENCOUNTER 2024-01-09 08:06 | Day surgery (SDC) | payer MEDICAID ==
[2024-01-09 08:47] LABS: BILIRUBIN,URINE NEGATIVE (NEGATIVE); GLUCOSE, URINE (UA) NEGATIVE (NEGATIVE); KETONES,URINE (UA) NEGATIVE (NEGATIVE); LEUKOCYTE ESTERASE, URINE NEGATIVE (NEGATIVE); NITRITE,URINE NEGATIVE (NEGATIVE); OCCULT BLOOD,URINE MODERATE (NEGATIVE); PROTEIN,URINE 30 mg/dL (NEGATIVE); UROBILINOGEN,URINE 0.2 (NORMAL) E.U./dL (NORMAL)
[2024-01-09 08:52] LABS: CLARITY,URINE HAZY (CLEAR); HCG UR QUAL NEGATIVE
[2024-01-09 08:54] LABS: BASOPHILS # (AUTO) 0.1 10^3/uL (0.0-0.1); BASOPHILS % (AUTO) 0.6 %; EOSINOPHILS # (AUTO) 0.1 10^3/uL (0.0-0.7); EOSINOPHILS % (AUTO) 1.3 %; HCT - HEMATOCRIT 39.9 % (37.0-47.0); HGB - HEMOGLOBIN 13.3 g/dL (12.0-16.0); LYMPHOCYTES # (AUTO) 1.6 10^3/uL (1.5-3.5); LYMPHOCYTES % (AUTO) 20.4 %; MEAN CORPUSCULAR HEMOGLOBIN 28.3 pg (27.0-31.0); MEAN CORPUSCULAR HGB CONC 33.3 g/dL (32.0-36.0); MEAN CORPUSCULAR VOLUME 84.9 fL (81.0-99.0); MEAN PLATELET VOLUME 9.7 fL (7.9-10.8); MONOCYTES # (AUTO) 0.6 10^3/uL (0.0-1.0); MONOCYTES % (AUTO) 7.1 %; NEUTROPHILS # (AUTO) 5.6 10^3/uL (1.5-6.6); NEUTROPHILS % (AUTO) 70.3 %; PLT - PLATELET COUNT 236 10^3/uL (130-450); RED CELL DISTRIBUTION WIDTH 13.1 % (12.0-15.0)
[2024-01-09 08:56] LABS: BACTERIA,URINE Moderate /HPF (None Seen); MUCUS,URINE Moderate Strands; RBC,URINE 0-5 /HPF (0-5); SQUAMOUS EPITHELIAL CELL,UR MOD Squamous (<= Few); WBC,URINE 0-3 /HPF (0-5)
--- NOTE | 2024-01-09 09:06 | ED Physician Documentation ---
PD HPI FEMALE - Stated complaint Stated Complaint: NAUSEA/PASSED OUT - Chief complaint Chief Complaint: Abd Pain - History obtained from History obtained from: Patient - History of Present Illness Timing - onset: Today, Last night Timing - duration: Days (Had some discomfort pain yesterday into last evening which worsened a lot this morning.) Timing - details: Abrupt onset (She had had some early pains in the low abdomen last night and overnight. She has started her menses so thought it was initially menstrual pain. She denied any unusual amount of menstrual flow. Then this morning the became pain became distinctly worse in a short timeframe and has persisted.), Still present Associated symptoms: No: Fever Contributing factors: No: , Exposed to STD Similar symptoms before: Has not had sx before Review of Systems Constitutional: denies: Fever, Chills Nose: denies: Rhinorrhea / runny nose, Congestion Throat: denies: Sore throat Respiratory: denies: Cough GI: reports: Abdominal Pain (since last night and much worse this morning.), Nausea. 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: Ovarian cysts HEENT: None Psych: Depression, Obsessive compulsive disorder Musculoskeletal: None Derm: None - Past Surgical History Past Surgical History: Yes HEENT: Myringotomy (tubes), Tonsil/Adenoidectomy - Present Medications Home Medications: Ambulatory Orders Medication Instructions Recorded Confirmed No Known Home Medications 01/09/24 01/09/24 - Allergies Allergies/Adverse Reactions: Allergies Allergy/AdvReac Type Severity Reaction Status Date / Time morphine Allergy Rash Verified 01/09/24 08:21 - Social History Does the pt smoke?: No Smoking Status: Current every day smoker Does the pt drink ETOH?: No Does the pt have substance abuse?: No - Immunizations Immunizations are current?: Yes - POLST Patient has POLST: No PD ED PE NORMAL - Vitals Vital signs reviewed: Yes - General General: Alert and oriented X 3, Well developed/nourished, Other (she appears very uncomfortable due to lower abd pain. ) - Cardiac Cardiac: RRR - Respiratory Respiratory: No respiratory distress, Clear bilaterally - Abdomen Abdomen: Normal bowel sounds, Soft, Non distended, Other (very tender lower abd both sides with right more than left. The patient does have percussion and guarding in the lower abdomen. Upper abdomen is minimally tender.) - Female Female : Deferred - Back Back: No CVA TTP - Derm Derm: Normal color, Warm and dry Results - Vitals Vitals: Vital Signs - 24 hr 01/09/24 01/09/24 01/09/24 08:17 10:21 12:01 Temperature 36.7 C Heart Rate 76 52 L 18 L Respiratory 20 18 18 Rate Blood Pressure 105/61 109/63 128/79 O2 Saturation 100 100 98 01/09/24 01/09/24 01/09/24 13:02 15:00 17:00 Temperature Heart Rate 70 70 48 L Respiratory 16 16 18 Rate Blood Pressure 127/75 119/73 106/53 L O2 Saturation 100 100 99 Oxygen O2 Source Room air - Labs Labs: Laboratory Tests 01/09/24 01/09/24 01/09/24 08:30 08:49 08:49 WBC 8.0 RBC 4.70 Hgb 13.3 Hct 39.9 MCV 84.9 MCH 28.3 MCHC 33.3 RDW 13.1 Plt Count 236 MPV 9.7 Neut # (Auto) 5.6 Lymph # (Auto) 1.6 [place] # (Auto) 0.6 Eos # (Auto) 0.1 Baso # (Auto) 0.1 Absolute Nucleated RBC 0.00 Nucleated RBC % 0.0 Sodium 139 Potassium 3.2 L Chloride 106 Carbon Dioxide 27 Anion Gap 6.0 BUN 10 Creatinine 0.7 Estimated GFR (MDRD) 103 Glucose 99 Calcium 9.5 Total Bilirubin 0.9 AST 12 ALT 8 L Alkaline Phosphatase 28 L C-Reactive Protein Total Protein 7.3 Albumin 4.8 Globulin 2.5 Albumin/Globulin Ratio 1.9 Lipase 10 L Urine Color YELLOW Urine Clarity HAZY Urine pH 6.0 Ur Specific [place] >=1.030 H Urine Protein 30 H Urine Glucose (UA) NEGATIVE Urine Ketones NEGATIVE Urine Occult Blood MODERATE H Urine Nitrite NEGATIVE Urine Bilirubin NEGATIVE Urine Urobilinogen 0.2 (NORMAL) Ur Leukocyte Esterase NEGATIVE Urine RBC 0-5 Urine WBC 0-3 Ur Squamous Epith Cells MOD Squamous H Urine Bacteria Moderate H Urine Mucus Moderate Strands Ur Microscopic Review INDICATED Urine Culture Comments NOT INDICATED Urine HCG, Qual NEGATIVE 01/09/24 08:49 WBC RBC Hgb Hct MCV MCH MCHC RDW Plt Count MPV Neut # (Auto) Lymph # (Auto) [place] # (Auto) Eos # (Auto) Baso # (Auto) Absolute Nucleated RBC Nucleated RBC % Sodium Potassium Chloride Carbon Dioxide Anion Gap BUN Creatinine Estimated GFR (MDRD) Glucose Calcium Total Bilirubin AST ALT Alkaline Phosphatase C-Reactive Protein 1.0 H Total Protein Albumin Globulin Albumin/Globulin Ratio Lipase Urine Color Urine Clarity Urine pH Ur Specific [place] Urine Protein Urine Glucose (UA) Urine Ketones Urine Occult Blood Urine Nitrite Urine Bilirubin Urine Urobilinogen Ur Leukocyte Esterase Urine RBC Urine WBC Ur Squamous Epith Cells Urine Bacteria Urine Mucus Ur Microscopic Review Urine Culture Comments Urine HCG, Qual - Rads (name of study) pelvic US Relevant Findings:: Prelim report reviewed (Normal blood flow to both ovaries without any structural abnormalities and no cyst nor free fluid.) abd/pelvic CT Relevant Findings:: Prelim report reviewed (Tubular structure coming from the cecum with some surrounding inflammation. No free fluid or abscess. Most likely consistent with appendicitis.) PD Medical Decision Making - ED course Complexity details: reviewed results, re-evaluated patient (needing repeat pain meds for comfort. ), considered differential, d/w patient ED course: The patient presented with some initial abdominal pain last night and overnight which she thought with menstrual pain having started her period yesterday. However got significantly worse this morning fairly abruptly. She presents with significant pain and tenderness in the lower abdomen both sides but more to the right. There is some referred tenderness from the upper abdomen. Some mild peritoneal signs with percussion and rebound tenderness in the lower abdomen. No CVA tenderness. My initial impression was likely pelvic or ovarian given both sides being hurting. She was given IV fluids with pain medication of Toradol and hydromorphone as well as ondansetron for nausea. Urine test was obtained and did not show any obvious signs of infection. There was trace of blood but likely contamination from menstrual blood. Negative nitrites and leukocytes. Negative test. Blood test showed a normal white count of 9.8. Electrolytes and blood sugar was good. Recheck of her was much less tenderness than it was owing to the pain medicine. However there was still significant tenderness in the lower abdomen again a little bit more right than left. I did not feel it was adequately explained by just dysmenorrhea given the degree of it. Shared decision with the patient was for CT of the abdomen and pelvis. The reading on the CT scan was likely appendicitis given the findings. No other obvious findings were found. In particular no free fluid. The CT did comment on some possible cystic structures in the ovary area. However I think the ultrasound is probably more accurate and did not show any cysts. I contacted 's office who is on-call for surgery with concern for continued lower abdominal pain in the setting of a likely appendicitis read on CT scan. Dr. Arnold's came to the ER to evaluate the patient. He is not certain on the diagnosis of the appendicitis given the degree of pain and tenderness on both sides. However an alternate explanation is not forthcoming at this time. Dr. Perales was heading to the OR for another case and would come back to reevaluate the patient after a little bit more pain medicine. The patient has had recurring pain and continued pain and has had repeated doses of pain medicine through the afternoon. I feel there is still an ongoing proces s accounting for this and it does not appear to be gynecologic. We will see doctor's offices reassessment after his case. Departure - Departure Disposition: ED Transfer to [facility] Clinical Impression: Lower abdominal pain, Appendicitis Condition: Stable Forms: PCP List
[2024-01-09 09:07] LABS: ALBUMIN 4.8 g/dL (3.2-5.5); ALBUMIN/GLOBULIN RATIO 1.9 (1.0-2.2); BILIRUBIN,TOTAL 0.9 mg/dL (0.2-1.0); CALCIUM 9.5 mg/dL (8.5-10.3); CREATININE 0.7 mg/dL (0.6-1.3); POTASSIUM 3.2 mmol/L (3.5-4.5); TOTAL PROTEIN 7.3 g/dL (6.4-8.9)
[2024-01-09] MEDS: ONDANSETRON 4 MG/2 ML VIAL IVP STA ×2 (10:28→18:37)
[2024-01-09] MEDS: SODIUM CHLORIDE 0.9% 1,000 ML IV STA (10:28)
[2024-01-09] MEDS: HYDROmorphone 0.5 MG/0.5 ML SYRINGE IVP STA (10:29)
[2024-01-09] MEDS: KETOROLAC 15 MG/ML VIAL IVP STA (10:29)
[2024-01-09] MEDS: POTASSIUM BICARB 25 MEQ TABLET PO STA (11:01)
--- NOTE | 2024-01-09 12:00 | Ultrasound Report ---
PROCEDURE: Pelvic w/Doppler Complete INDICATIONS: lower abd pain/tender 2 days TECHNIQUE: Grayscale and color Doppler imaging of the pelvis and ovaries COMPARISON: None. FINDINGS: Uterus measures 7 x 4 x 5.8 cm and is anteverted. Normal transabdominal and transvaginal appearance. Endometrium measures 8 mm in combined thickness. No uterine mass identified. Right ovary measures 4 x 2.4 x 2.4 cm with a volume of 12.3 mL. Normal morphology of the ovary with n o solid mass identified. Normal spectral waveform of the right ovary. Left ovary measures 3.2 x 1.7 x 1.9 cm with a volume of 5.6 mL. Normal morphology. No solid mass iden tified. Normal spectral waveforms of the left ovary. IMPRESSION: Normal pelvic ultrasound. Reviewed by: Ivan Short MD on 01/09/2024 10:59 AM THIERRY Approved by: Ivan Short MD on 01/09/2024 10:59 AM THIERRY Station ID: [id number]
[2024-01-09] MEDS ORDERED: iohexoL-300 100 ML VIAL ONE (12:09)
[2024-01-09] MEDS: SODIUM CHLORIDE 0.9% 500 ML IV STA (12:44)
[2024-01-09] MEDS: HYDROmorphone 1 MG/ML CARPUJECT IVP STA ×2 (12:44→16:04)
--- NOTE | 2024-01-09 13:17 | CT Report ---
PROCEDURE: Abdomen/Pelvis W INDICATIONS: lower abd pain both sides x 2 days CONTRAST: 100ml omni 300 TECHNIQUE: After the administration of intravenous contrast, a CT scan of the abdomen and pelvis was performed. Images were recorded and evaluated at appropriate window settings. Reformats: coronal and sagittal. F or radiation dose reduction, the following was used: automated exposure control, adjustment of mA and /or kV according to patient size. COMPARISON: None. FINDINGS: Image quality: Diagnostic. Lower chest: Unremarkable. Liver: Hepatomegaly. Gallbladder: No radiopaque stones or wall thickening. Biliary tree: No intrahepatic or extrahepatic dilation, accounting for age. Spleen: No splenomegaly. Pancreas: No pancreatic ductal dilation. Adrenals: No adrenal nodule. Kidneys and ureters: No hydronephrosis. No renal cystic lesion which requires follow up. No solid mas s. Stomach, bowel and peritoneum: No gastric or small bowel dilation. No abnormal wall thickening. No pa thologic free fluid. There is a 6 mm tubular structure surrounding hyperemia arising from the cecum. This is in the area of the previous identified appendix. The terminal ileum is not well identified. Lymph nodes: No central or retroperitoneal adenopathy. Vessels: No infrarenal aortic aneurysm. Patent portal vein. PELVIS Reproductive organs: Cystic changes of the bilateral adnexa. Bladder: No abnormal wall thickening, accounting for underdistention. Pelvic lymph nodes: No pelvic adenopathy by size criteria. Bones: No aggressive osseous abnormality. Other: No significant ventral or inguinal hernia. IMPRESSION: Probable acute appendicitis. Cystic changes of the bilateral adnexa. Reviewed by: Ivan Short MD on 01/09/2024 12:16 PM THIERRY Approved by: Ivan Short MD on 01/09/2024 12:16 PM AKBALJIT Station ID: [id number]
[2024-01-09] MEDS: LACTATED RINGERS 1,000 ML IV STA (14:29)
[2024-01-09] MEDS: iohexoL-300 100 ML VIAL IVP ONE (15:23)
[2024-01-09] MEDS: PIPERACILLIN/TAZOBACTAM 3.375 GM in SODIUM CHLORIDE 0.9% MINIBAG 100 ML IV STA (16:09)
[2024-01-09] MEDS ORDERED: BUPIVACAINE 0.5%-EPI 1:200000 PF 30 ML VIAL ONE (19:19)
--- NOTE | 2024-01-09 19:36 | ANESTHESIA ---
Pre-Anesthesia VS, & Labs - Diagnosis acute appendicitis - Procedure laparoscopic appendectomy Vital Signs: Temp Pulse Resp BP Pulse Ox O2 Flow Rate 36.7 C 52 L 16 103/58 L 96 01/09/24 18:39 01/09/24 18:39 01/09/24 18:39 01/09/24 18:39 01/09/24 18:39 Height: 5 ft 6 in Weight (kg): 58.967 kg Body Mass Index: 20.9 BMI Classification: Normal - NPO >8 hours - Is Patient ?: No - Lab Results Current Lab Results: Laboratory Tests 01/09/24 08:49: C-Reactive Protein 1.0 H 01/09/24 08:49: Sodium 139, Potassium 3.2 L, Chloride 106, Carbon Dioxide 27, A nion Gap 6.0, BUN 10, Creatinine 0.7, Estimated GFR (MDRD) 103, Glucose 99, Calcium 9.5, Total Bilirubin 0.9, AST 12, ALT 8 L, Alkaline Phosphatase 28 L, Total Protein 7.3, Albumin 4.8, Globulin 2.5, Albumin/Globulin Ratio 1.9, Lipase 10 L 01/09/24 08:49: WBC 8.0, RBC 4.70, Hgb 13.3, Hct 39.9, MCV 84.9, MCH 28.3, MCHC 33.3, RDW 13.1, Plt Count 236, MPV 9.7, Neut # (Auto) 5.6, Lymph # (Auto) 1.6, [place] # (Auto) 0.6, Eos # (Auto) 0.1, Baso # (Auto) 0.1, Absolute Nucleated RBC 0.00, Nucleated RBC % 0.0 Fish Bones: 01/09/24 08:49 01/09/24 08:49 Home Medications and Allergies Home Medications: Ambulatory Orders No Known Home Medications 01/09/24 No Known Home Medications 01/09/24 Allergies/Adverse Reactions: Allergies Allergy/AdvReac Type Severity Reaction Status Date / Time morphine Allergy Rash Verified 01/09/24 08:21 Anes History & Medical History - Anesthetic History Anesthesia Complications: reports: No previous complications - Medical History Cardiovascular: reports: None Pulmonary: reports: None Gastrointestinal: reports: None Neuro: reports: None Musculoskeletal: reports: None Endocrine/Autoimmune: reports: None Blood Disorders: reports: None Skin: reports: None Smoking Status: Current every day smoker - Surgical History Eyes Ears Nose Throat (EENT): reports: Myringotomy (tubes), Tonsil/Adenoidectomy Exam General: Alert, Oriented x3 Dental: WNL Mouth Opening: Greater than 4 Fingerbreadths Neck Mobility: Normal Mallampati classification: II Thyromental Distance: 4-6 cm Respiratory: Lungs clear Cardiovascular: Regular rate Plan Anesthesia Type: General Consent for Procedure(s) Verified and Reviewed: Yes Code Status: Attempt Resuscitation ASA classification: 2-Mild systemic disease Is this case an emergency?: Yes
--- NOTE | 2024-01-09 19:42 | ED Physician Documentation ---
ED Addendum - Addendum Addendum: 01/09/24 19:42 Patient signed out to me by Dr. Knutson, see his note for full H&P on this patient. Dr. Jim did come and reevaluate the patient. After a discussion with the patient, it was decided that they would go to the operating room for appendicitis. Departure - Departure Disposition: ED Transfer to [facility] Clinical Impression: Lower abdominal pain Appendicitis Qualifiers: Appendicitis type: acute appendicitis Acute appendicitis type: unspecified acute appendicitis type Qualified Code(s): K35.80 - Unspecified acute appendicitis Condition: Stable
[2024-01-09] MEDS ORDERED: NALOXONE 0.4 MG/ML VIAL IVP PRN (19:44)
[2024-01-09] MEDS ORDERED: ePHEDrine 50 MG/ML VIAL IVP PRN (19:44)
[2024-01-09] MEDS ORDERED: METOCLOPRAMIDE 10 MG/2 ML VIAL IVP PRN (19:44)
[2024-01-09] MEDS ORDERED: HYDROmorphone 0.5 MG/0.5 ML SYRINGE IVP PRN (19:44)
[2024-01-09] MEDS ORDERED: ONDANSETRON 4 MG/2 ML VIAL IVP PRN ×2 (19:44→21:38)
[2024-01-09] MEDS ORDERED: ATROPINE ABBOJECT 1 MG/10 ML SYRINGE IVP PRN (19:44)
[2024-01-09] MEDS ORDERED: MORPHINE 2 MG/ML CARPUJECT IVP PRN (19:44)
[2024-01-09] MEDS ORDERED: fentaNYL 100 MCG/2 ML VIAL IVP PRN (19:44)
--- NOTE | 2024-01-09 19:47 | CONSULTATION NOTE ---
Referring Provider Name of Referring Provider:: Dr. West Knutson Consult Date: 01/09/24 Chief Complaint - Chief Complaint Chief Complaint: Lower abdominal pain more right than left History of Present Illness - Admitted From Admitted From:: Outpatient - History Obtained From Records Reviewed: Yes History obtained from: Patient, Dr. West Knutson, and chart Exam Limitations: None - History of Present Illness HPI Comment/Other: This is an exceedingly pleasant 23-year-old female who I was called in consultation by Dr. West Knutson to evaluate and possibly treat lower abdominal pain more right than left-sided. The pain started abruptly last evening and the patient initially thought it was related to her menses as her period started at about the same time. This morning there was a marked worsening of her pain and she became vasovagal. The patient was profoundly nauseous but did not vomit. There is been no change in bowel habits. The patient has had a history of ruptured ovarian cyst in the past. 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: Ovarian cysts HEENT: reports: None Psych: reports: Depression, Obsessive compulsive disorder Musculoskeletal: reports: None Derm: reports: None MRSA Hx?: No - Past Surgical History HEENT: reports: Myringotomy (tubes), Tonsil/Adenoidectomy - POLST Patient has POLST: No Meds/Allgy - Home Medications Home Medications: Ambulatory Orders Medication Instructions Recorded Confirmed No Known Home Medications 01/09/24 01/09/24 - Allergies Allergies/Adverse Reactions: Allergies Allergy/AdvReac Type Severity Reaction Status Date / Time morphine Allergy Rash Verified 01/09/24 08:21 Review of Systems - Constitutional Constitutional: denies: Fatigue, Fever, Chills, Malaise - Eyes Eyes: denies: Pain - Ears, Nose & Throat Ears, Nose & Throat: denies: Ear pain - Cardiovascular Cariovascular: reports: Syncope (see above). denies: Irregular heart rate, Palpitations, Chest pain - Respiratory Respiratory: denies: Cough, Sputum production - Gastrointestinal Gastrointestinal: reports: Abdominal pain - Integumentary Integumentary: denies: Rash - Neurological Neurological: denies: General weakness, Focal weakness Exam - Vital Signs Reviewed Vital Signs: Yes Vital Signs: Vital Signs x48h Temp Pulse Resp BP Pulse Ox 01/09/24 18:39 36.7 C 52 L 16 103/58 L 96 01/09/24 17:00 48 L 18 106/53 L 99 01/09/24 15:00 70 16 119/73 100 01/09/24 13:02 70 16 127/75 100 01/09/24 12:01 18 L 18 128/79 98 - Physical Exam General Appearance: positive: Mild distress Eyes Bilateral: positive: No lid inflammation, Conjunctivae nml, No scleral icterus ENT: positive: Dry mucous membranes Neck: positive: Trachea midline Respiratory: positive: Chest non-tender, No respiratory distress, Breath sounds nml Cardiovascular: positive: Regular rate & rhythm, No murmur, No gallop Abdomen: positive: Tenderness (Lower aspect of abdomen more RIGHT than LEFT), Guarding, Rebound, Abnml bowel sounds (Decreased.). negative: Hepatomegaly, Splenomegaly Skin: positive: Color nml, No rash, Warm, Dry Neurologic/Psychiatric: positive: Oriented x3, Motor nml, Sensation nml, Mood/affect nml Conclusion/Plan - Lab Results Lab results reviewed: Yes Fish Bones: 01/09/24 08:49 01/09/24 08:49 - Diagnostic Imaging Results Diagnostic Imaging Results: positive: Final report reviewed - Other Other Results/Comments: Assessment: Acute appendicitis possible ruptured ovarian cyst Plan: Laparoscopic appendectomy, possible open appendectomy. The indications, procedure, alternatives including no surgery, possible risks including infection (deep or superficial), bleeding requiring transfusion (with all of its risks), and were fully explained to the patient and all questions answered. I also explained the pathophysiology. I explained that following the surgery I did not want her lifting anything over 15 pounds for 6 weeks to allow for optimal healing and to decrease the likelihood that a hernia would occur. All questions were fully answered. Verbal and written consent was obtained. The patient, in preparation for surgery will be nothing by mouth, and receive 3.375 g of Zosyn with induction. I asked her to contact me with any surgical questions and her concerns and she stated that she would. I asked her to let me know if there is any way we can make her stay at [facility] more comfortable and she stated that she would let me know. The plan is to do this operation as an outpatient procedure and to discharge her home following the procedure. 45 minutes of [id number] time spent with the patient, over 80% in discussion and coordination of her care ICD-10 K35.80 CPT 31161
[2024-01-09] MEDS ORDERED: MIDAZOLAM 2 MG/2 ML VIAL ONE (19:48)
[2024-01-09] MEDS ORDERED: ROCURONIUM 50 MG/5 ML VIAL ONE (19:51)
[2024-01-09] MEDS ORDERED: LIDOCAINE-PF 2% 10 ML AMP SUBQ ONE (19:53)
[2024-01-09] MEDS ORDERED: LACTATED RINGERS 1,000 ML IV SCH (20:00)
[2024-01-09] MEDS ORDERED: ACETAMINOPHEN 1,000 MG/100 ML 1,000 MG/100 ML BAG IV ONE (20:20)
[2024-01-09] MEDS ORDERED: ONDANSETRON 4 MG/2 ML VIAL ONE (20:22)
[2024-01-09] MEDS ORDERED: DEXAMETHASONE 4 MG/ML VIAL ONE (20:22)
[2024-01-09] MEDS: BUPIVACAINE 0.5%-EPI 1:200000 PF 30 ML VIAL SUBQ ONE (20:34)
[2024-01-09] MEDS ORDERED: KETOROLAC 30 MG/ML VIAL ONE (20:51)
[2024-01-09] MEDS ORDERED: SUGAMMADEX 200 MG/2 ML VIAL IVP ONE (20:51)
[2024-01-09] MEDS ORDERED: GLYCOPYRROLATE 1 MG/5 ML VIAL ONE (21:11)
[2024-01-09] MEDS: LACTATED RINGERS 1,000 ML IV ONE (21:27)
--- NOTE | 2024-01-09 21:27 | OPERATIVE REPORT ---
Operative Report - General Procedure Date: 01/09/24 Planned Procedure: Laparoscopic appendectomy, possible open appendectomy Pre-Op Diagnosis: Possible acute appendicitis, possible ruptured ovarian cyst Procedure Performed: Laparoscopic appendectomy, washout of pelvis Post Op Diagnosis: Ruptured ovarian cyst (likely left), normal-appearing appendix - Procedure Note Primary Surgeon: [place] Jim MD Anesthesia Provider: Jennifer Oliver CRNA Anesthesia Technique: General ET tube, Local (30 mL of half percent Marcaine with epinephrine) IV Fluids (mL): 600 Estimated Blood Loss (mL): 5 Drain/Tube Type: Other (None) Indications: Lower abdominal/pelvic pain more right than left with GI symptoms and with equivocal findings on CT scan Findings: Blood in pelvis as well as a normal-appearing right ovary but a left ovary that appears to have been the source of the blood (ruptured cyst) Complications: None. - Other Other Information/Narrative: After verbal and written informed consent was obtained detailing the operation, the alternatives to the operation including no operation, risks of infection, bleeding requiring transfusion with its risks, nerve injury, and and after I met with the patient confirming the surgery, the patient was brought to the operative suite and placed supine on the operating table. Great care was taken to avoid pressure points to prevent pressure necrosis or nerve injury. Monitoring devices were applied along with TEDs and pneumatic compressive stockings (to prevent DVT). The patient received preoperative antibiotics for surgical prophylaxis. Jennifer Oliver CRNA sedated and anesthetized the patient for the entire procedure. The patient was prepped and draped in usual sterile manner. A "time in" then confirmed that the patient was identified with 3 identifiers (name, date, and medical record number), the history and physical was in the chart, the signed consent confirming the procedure was in the chart, the patient was in the correct position, the aforementioned prophylactic measures were in place were given, we had the correct personnel and equipment to complete the procedure and that anesthesia, and the surgical team was given an opportunity to express any concerns. With the agreement of everyone in the room, we proceeded with the operation. The initial incision was at the umbilicus and dissection to the linea alba was completed using blunt dissection. The linea alba was grasped with a Toi and incised. In a similar manner the peritoneum was grasped and incised using Metzenbaum scissors. In this location, a 12 mm blunt tipped, balloon tipped port was placed and the balloon was inflated to keep the port in position. The abdominal cavity was insufflated with carbon dioxide to a steady-state pressure of 12 mmHg. 2 additional 5 mm ports were placed in standard locations for laparoscopic appendectomy (above and below the umbilicus at the midline) under direct vision of the 30 degree laparoscope and without incident. The patient was then placed in Trendelenburg position and was rotated slightly to their left. The examination started in the pelvis where there was bloody fluid noted. The uterus itself appeared slightly boggy. The right and left fallopian tubes appeared normal. The right ovary was rather large but appeared normal in appearance. The left ovary was similarly large but there was an area of this that had what appeared to be coagulated blood attached to it. There was no ongoing bleeding. Due to the appearance I surmised that this was the site of the ruptured ovarian cyst. The examination was then directed towards the appendix. Although the appendix appeared long it was entirely normal in appearance. There is no surrounding erythema or inflammation. This was carefully grasped to avoid rupture and the appendiceal mesentery was taken using sequential application of the LigaSure. Once the base of the appendix was encountered the appendix was transected using a laparoscopic JESE stapler with a GI load that had been placed through the umbilical port and the camera was placed through the upper of the 5 mm ports. E xamination of the staple line noted to be intact without leak or bleeding. An Endopouch was placed through the umbilical port and the appendix was placed into the Endopouch and the Endopouch was secured. The left and right lower quadrants and pelvis was then copiously irrigated using 3 L of warm sterile saline. This was done to remove the blood and acute phase reactants that might be causing the patient pain. Additionally, it was clear to see that there was no ongoing bleeding. I injected the port sites at the peritoneal, fascial, and skin levels under direct vision with 0.5% Marcaine with epinephrine. All ports and the Endopouch containing the appendix were removed. Following appendiceal removal, the remaining carbon dioxide was expelled from the abdomen. The fascia the umbilicus was approximated using a [id number] 0 Vicryl sutures. The skin at each port site was approximated using a subcuticular and simple 4-0 Monocryl. The skin was cleaned of its prep and Dermabond was applied. At this point a "timeout" was performed that confirmed that all counts were correct, the procedure that was performed, the blood loss, the IV fluids administered, the patient's condition and any concerns of the operating team had. Dressings were then applied. Having tolerated the procedure well, the patient was extubated and taken to recovery room in good and stable condition. The plan is for outpatient discharge when the patient is adequately recovered. CPT 84275 CPT for pelvic lavage - I cannot find a code This document was created in part using voice recognition technology. Because of the inherent limitations of the system, occasional same sounding word substitutions and grammatical errors do occur and persist despite proofreading. Please read this document for context.
--- NOTE | 2024-01-09 21:33 | ANESTHESIA POST OP EVALUATION ---
Anesthesia Post Eval - Post Anesthesia Eval Vitals: Last Vital Signs Temp 36.2 C L 01/09/24 21:25 Pulse 89 01/09/24 21:25 Resp 18 01/09/24 21:25 BP 123/63 01/09/24 21:25 Pulse Ox 100 01/09/24 21:25 O2 Flow Rate CV Function Including HR & BP: Stable Pain Control: Satisfactory Nausea & Vomiting: Negative Mental Status: Baseline Respiratory Status: Airway Patent Hydration Status: Satisfactory Anesthesia Complications: None
[2024-01-09] MEDS ORDERED: HYDROmorphone 0.5 MG/0.5 ML SYRINGE ONE (21:39)
[2024-01-09] MEDS: HYDROmorphone 0.5 MG/0.5 ML SYRINGE IVP PRN (21:40)
[2024-01-09] MEDS: HYDROcod/ACETAM 5/325 MG TABLET PO PRN (22:30)
[2024-01-09 23:45] VITALS: O2SAT 97
[2024-01-10 00:08] VITALS: BP 121/74
== END 2024-01-10 00:20 | disposition home or self-care (01) ==
LOC: ED 08:06 → SDS 19:25 → MS3 21:02 → SDS 01-10 00:20
PROVIDERS: ATTEND Surgery
PROC: 0DTJ4ZZ Resection of Appendix, Percutaneous Endoscopic Approach (ICD-10-PCS; principal; 2024-01-09 20:00)
DX: K35.80 Unspecified acute appendicitis (principal); N83.202 Unspecified ovarian cyst, left side; F17.200 Nicotine dependence, unspecified, uncomplicated; Z32.02 Encounter for pregnancy test, result negative
CPT/HCPCS: 36415; 44970; 74177; 76856; 80053; 81001; 81025; 83690; 85025; 86140; 93975; 96365; 96375; 96376; 99285; A9270; J0131; J1170; J7120; Q9967; 81003; 87086

== ENCOUNTER 2024-05-02 12:05 | Emergency (ER) | payer MEDICAID ==
--- NOTE | 2024-05-02 12:37 | ED Physician Documentation ---
PD HPI ABD PAIN - Stated complaint Stated Complaint: ABD PX, BLOOD IN STOOL - Chief complaint Chief Complaint: Abd Pain - History obtained from History obtained from: Patient - Additional information Additional information: For the last yeaar she has been having intermittent generally worsening abd pain with alternating constipation and diarrhea. Occ blood in stool, more today. No food triggers. Weight varying up and down but no particular trend. 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 HEENT: None Psych: Depression, Obsessive compulsive disorder Musculoskeletal: None Derm: None - Past Surgical History Past Surgical History: Yes General: Appendectomy HEENT: Myringotomy (tubes), Tonsil/Adenoidectomy - Present Medications Home Medications: Ambulatory Orders Medication Instructions Recorded Confirmed Docusate Sodium 250Mg Capsule 250 mg PO DAILY #20 cap 01/09/24 [Colace 250Mg Capsule] HYDROcod/ACETAM 5/325 [[place] 5/325] 1 each PO Q4H PRN #8 tablet 01/09/24 Budesonide [Budesonide EC] 3 mg PO TID #120 cap 05/02/24 Dicyclomine [Bentyl] 1 - 2 tab PO QID PRN #60 cap 05/02/24 - Allergies Allergies/Adverse Reactions: Allergies Allergy/AdvReac Type Severity Reaction Status Date / Time morphine Allergy Rash Verified 05/02/24 12:19 - Social History Does the pt smoke?: No Smoking Status: Never smoker Does the pt drink ETOH?: No Does the pt have substance abuse?: No - Immunizations Immunizations are current?: Yes - POLST Patient has POLST: No PD ED PE NORMAL - Vitals Vital signs reviewed: Yes - General General: Alert and oriented X 3, No acute distress - Abdomen Abdomen: Normal bowel sounds, Soft, Non tender - Neuro Neuro: Alert and oriented X 3, Normal speech Results - Vitals Vitals: Vital Signs - 24 hr 05/02/24 12:19 Temperature 36.5 C Heart Rate 70 Respiratory 16 Rate Blood Pressure 134/80 H O2 Saturation 99 Oxygen O2 Source Room air - Labs Labs: Laboratory Tests 05/02/24 05/02/24 05/02/24 12:30 12:34 12:34 WBC 5.5 RBC 4.67 Hgb 13.3 Hct 40.0 MCV 85.7 MCH 28.5 MCHC 33.3 RDW 12.7 Plt Count 240 MPV 9.7 Neut # (Auto) 3.1 Lymph # (Auto) 2.0 [place] # (Auto) 0.4 Eos # (Auto) 0.0 Baso # (Auto) 0.1 Absolute Nucleated RBC 0.00 Nucleated RBC % 0.0 Sodium 139 Potassium 3.7 Chloride 105 Carbon Dioxide 28 Anion Gap 6.0 BUN 8 Creatinine 0.7 Estimated GFR (MDRD) 103 Glucose 76 Calcium 9.4 Total Bilirubin 0.6 AST 14 ALT 11 Alkaline Phosphatase 27 L Total Protein 7.3 Albumin 5.2 Globulin 2.1 Albumin/Globulin Ratio 2.5 H Lipase 19 Urine Color YELLOW Urine Clarity CLEAR Urine pH 5.5 Ur Specific [place] >=1.030 H Urine Protein NEGATIVE Urine Glucose (UA) NEGATIVE Urine Ketones NEGATIVE Urine Occult Blood NEGATIVE Urine Nitrite NEGATIVE Urine Bilirubin NEGATIVE Urine Urobilinogen 0.2 (NORMAL) Ur Leukocyte Esterase NEGATIVE Ur Microscopic Review NOT INDICATED Urine Culture Comments NOT INDICATED Urine HCG, Qual NEGATIVE PD Medical Decision Making - ED course ED course: She presents with what sounds like either IBS or IBD. Benign exam so I do not think CT imaging is warranted today especially given the subacute symptoms. Plan to check labs and then treat with probably hyoscyamine and budesonide pending follow-up Departure - Departure Disposition: 01 Home, Self Care Clinical Impression: Abdominal pain Condition: Good Record reviewed to determine appropriate education?: Yes Instructions: ED Abdominal Pain Female Non-Specific Abdominal Pain Follow-Up: Surgical Care [Provider Group] Prescriptions: Dicyclomine [Bentyl] 1 - 2 tab PO QID PRN #60 cap PRN Reason: Abdominal Pain Budesonide [Budesonide EC] 3 mg PO TID #120 cap Comments: Your labs are normal today. I suspect you have something along the lines of either irritable bowel syndrome or inflammatory bowel disease such as Crohn's disease or ulcerative colitis. I am prescribing some meds that would help with either, and recommend you follow-up with a surgeon or corporate executive chef for consideration for upper and/or lower endoscopies which are the diagnostic test of choice for the above etiologies. The local surgery office is on this form. Return for new or worsening symptoms. Forms: PCP List
[2024-05-02 12:39] LABS: BASOPHILS # (AUTO) 0.1 10^3/uL (0.0-0.1); BASOPHILS % (AUTO) 1.1 %; EOSINOPHILS % (AUTO) 0.7 %; HGB - HEMOGLOBIN 13.3 g/dL (12.0-16.0); LYMPHOCYTES % (AUTO) 35.9 %; MEAN CORPUSCULAR HEMOGLOBIN 28.5 pg (27.0-31.0); MEAN CORPUSCULAR HGB CONC 33.3 g/dL (32.0-36.0); MEAN CORPUSCULAR VOLUME 85.7 fL (81.0-99.0); MEAN PLATELET VOLUME 9.7 fL (7.9-10.8); MONOCYTES # (AUTO) 0.4 10^3/uL (0.0-1.0); MONOCYTES % (AUTO) 6.5 %; NEUTROPHILS # (AUTO) 3.1 10^3/uL (1.5-6.6); NEUTROPHILS % (AUTO) 55.6 %; PLT - PLATELET COUNT 240 10^3/uL (130-450); RED BLOOD COUNT 4.67 10^6/uL (4.20-5.40); RED CELL DISTRIBUTION WIDTH 12.7 % (12.0-15.0); WHITE BLOOD COUNT 5.5 x10^3/uL (4.8-10.8)
[2024-05-02 12:51] LABS: BILIRUBIN,URINE NEGATIVE (NEGATIVE); GLUCOSE, URINE (UA) NEGATIVE (NEGATIVE); KETONES,URINE (UA) NEGATIVE (NEGATIVE); LEUKOCYTE ESTERASE, URINE NEGATIVE (NEGATIVE); NITRITE,URINE NEGATIVE (NEGATIVE); OCCULT BLOOD,URINE NEGATIVE (NEGATIVE); PH,URINE 5.5 PH (5.0-7.5); PROTEIN,URINE NEGATIVE (NEGATIVE); UROBILINOGEN,URINE 0.2 (NORMAL) E.U./dL (NORMAL)
[2024-05-02 12:53] LABS: CLARITY,URINE CLEAR (CLEAR); HCG UR QUAL NEGATIVE
[2024-05-02 12:56] LABS: ALBUMIN 5.2 g/dL (3.2-5.5); ALBUMIN/GLOBULIN RATIO 2.5 (1.0-2.2); BILIRUBIN,TOTAL 0.6 mg/dL (0.2-1.0); CALCIUM 9.4 mg/dL (8.5-10.3); CREATININE 0.7 mg/dL (0.6-1.3); POTASSIUM 3.7 mmol/L (3.5-4.5); TOTAL PROTEIN 7.3 g/dL (6.4-8.9)
[2024-05-02 13:19] VITALS: BP 120/75; O2SAT 100
== END 2024-05-02 13:20 | disposition home or self-care (01) ==
LOC: ED 12:05
DX: R10.9 Unspecified abdominal pain (principal)
CPT/HCPCS: 36415; 80053; 81001; 81003; 81025; 83690; 85025; 87086; 99283